=== PATIENT | male | born 1960 | race African-American/Black ===

== ENCOUNTER 2017-02-20 13:29 | Emergency (ER) | payer MEDICARE, MEDICAID ==
--- NOTE | 2017-02-20 13:36 | ER Document Report ---
ED Medical Screen (RME) - General Stated Complaint: THROAT PROBLEM Mode of Arrival: Ambulatory Information source: Patient Notes: PT REPORTS HE FEELS LIKE SOMETHING IS STUCK IN HIS THROAT FOR OVER A WEEK. HE REPORTS IT STARTED AFTER EATING POTATOES. He has been eating soft foods since that time. Nephew reports pt voice seems a little different. I have greeted and performed a rapid initial assessment of this patient. A comprehensive ED assessment and evaluation of the patient, analysis of test results and completion of the medical decision making process will be conducted by additional ED providers. TRAVEL OUTSIDE OF THE [place] IN LAST 30 DAYS: No - Related Data Allergies/Adverse Reactions: No Known Allergies Allergy (Verified 10/09/16 08:44) Past Medical History - Past Medical History Cardiac Medical History: Reports: Hx Hypercholesterolemia, Hx Hypertension Pulmonary Medical History: Reports: Hx Asthma Psychiatric Medical History: Reports: Hx Schizophrenia - Immunizations Hx Diphtheria, Pertussis, Tetanus Vaccination: Yes
[2017-02-20] MEDS ORDERED: LIDOCAINE 2% VISCOUS SOLN 20 ML UDCUP PO ONE (15:55)
--- NOTE | 2017-02-20 15:58 | ER Document Report ---
HPI - HPI Patient complains to provider of: foreign body in throat Onset: Last week Onset/Duration: Persistent Quality of pain: Achy Pain Level: 3 Context: Patient states that he was eating chicken last week and a bone got caught in his throat. Patient states that he feels like the bone is lodged in his esophagus. Since then patient has been drinking tea, water, has eaten rice as well as potatoes without difficulty. Associated Symptoms: Other - Throat discomfort. denies: Nonproductive cough, Productive cough Exacerbated by: Food Relieved by: Denies Similar symptoms previously: No Recently seen / treated by doctor: No - ROS ROS below otherwise negative: Yes Systems Reviewed and Negative: Yes All other systems reviewed and negative - CONSTITUTIONAL Constitutional: DENIES: Fever, Chills - EENT EENT: REPORTS: Sore Throat - RESPIRATORY Respiratory: DENIES: Trouble Breathing, Coughing - MUSCULOSKELETAL Musculoskeletal: DENIES: Extremity pain, Back Pain - DERM Skin Color: Normal Skin Problems: None Past Medical History - General Information source: Patient - Social History Smoking Status: Never Smoker Chew tobacco use (# tins/day): No Frequency of alcohol use: None Drug Abuse: None Lives with: Family Family History: Reviewed & Not Pertinent - Past Medical History Cardiac Medical History: Reports: Hx Hypercholesterolemia, Hx Hypertension Pulmonary Medical History: Reports: Hx Asthma Renal/ Medical History: Denies: Hx Peritoneal Dialysis Psychiatric Medical History: Reports: Hx Schizophrenia Surgical Hx: Negative - Immunizations Hx Diphtheria, Pertussis, Tetanus Vaccination: Yes Vertical Provider Document - CONSTITUTIONAL Agree With Documented VS: Yes Exam Limitations: No Limitations General Appearance: WD/WN, No Apparent Distress - INFECTION CONTROL TRAVEL OUTSIDE OF THE [place] IN LAST 30 DAYS: No - HEENT HEENT: Atraumatic, Normal ENT Exam, Normocephalic Notes: Patient managing oral secretions without difficulty. - NECK Neck: Normal Inspection, Supple. negative: Lymphadenopathy-Left, Lymphadenopathy-Right - RESPIRATORY Respiratory: Breath Sounds Normal, No Respiratory Distress, Chest Non-Tender. negative: Rales, Rhonchi, Wheezing O2 Sat by Pulse Oximetry: 99 - CARDIOVASCULAR Cardiovascular: Regular Rate, Regular Rhythm, No Murmur - MUSCULOSKELETAL/EXTREMETIES Musculoskeletal/Extremeties: MAEW - NEURO Level of Consciousness: Awake, Alert, Appropriate Motor/Sensory: No Motor Deficit - DERM Integumentary: Warm, Dry, No Rash Course - Re-evaluation Re-evalutation: 02/20/17 15:[address] rosales regarding patient presentation. Recommends outpatient follow-up primary doctor for further evaluation. May give dose of by mouth lidocaine to help with throat discomfort. - Vital Signs Vital signs: Temp Pulse Resp BP Pulse Ox 97.7 F 73 20 135/71 H 99 02/20/17 13:33 02/20/17 13:33 02/20/17 13:33 02/20/17 13:33 02/20/17 13:33 - Diagnostic Test Radiology reviewed: Reports reviewed Discharge - Discharge Clinical Impression: Throat discomfort Condition: Stable Disposition: HOME, SELF-CARE Additional Instructions: Return immediately for any new or worsening symptoms Followup with your primary care provider, call tomorrow to make a followup appointment Your x-ray did not show any signs concerning for a bone foreign body in her throat. Recheck with your primary doctor on Wednesday for further evaluation. Referrals: ERIK PUGH MD [ACTIVE STAFF] - 02/22/17
[2017-02-20 16:16] VITALS: BP 146/79
== END 2017-02-20 16:15 | disposition home or self-care (01) ==
LOC: ER 13:29
DX: T17.208A Unspecified foreign body in pharynx causing other injury, initial encounter (principal)
CPT/HCPCS: 99283; 70360; J3490

== ENCOUNTER → 2017-02-24 | Outpatient (CLI) | payer MEDICARE, MEDICAID | LOC: RAD 08:30 | PROVIDERS: ATTEND Physician Assistant | DX: R13.10 Dysphagia, unspecified (principal); K21.9 Gastro-esophageal reflux disease without esophagitis | CPT/HCPCS: 74210 ==

== ENCOUNTER 2018-02-10 15:34 | Observation (INO) | payer MEDICARE, MEDICAID ==
[2018-02-10] MEDS ORDERED: ASPIRIN 81 MG TABLET, CHEWABLE PO ONE (16:07)
--- NOTE | 2018-02-10 16:28 | RADIOLOGY REPORT (SQ) ---
EXAM DESCRIPTION: CHEST SINGLE VIEW COMPLETED DATE/TIME: 02/10/2018 4:19 pm REASON FOR STUDY: chest pain COMPARISON: None. EXAM PARAMETERS: NUMBER OF VIEWS: One view. TECHNIQUE: Single frontal radiographic view of the chest acquired. RADIATION DOSE: NA LIMITATIONS: None. FINDINGS: LUNGS AND PLEURA: No opacities, masses or pneumothorax. No pleural effusion. MEDIASTINUM AND HILAR STRUCTURES: No masses. Contour normal. HEART AND VASCULAR STRUCTURES: Heart normal in size. Normal vasculature. BONES: No acute findings. HARDWARE: None in the chest. OTHER: No other significant finding. IMPRESSION: NO ACUTE RADIOGRAPHIC FINDING IN THE CHEST. TECHNICAL DOCUMENTATION: JOB ID: [id number] [employer]- All Rights Reserved Reading location - IP/workstation name: [email or web address]
[2018-02-10 16:31] LABS: ABSOLUTE EOSINOPHILS # (AUTO) 0.1 10^3/uL (0.0-0.6); ABSOLUTE LYMPHOCYTES (AUTO) 1.5 10^3/uL (0.5-4.7); ABSOLUTE MONOCYTES (AUTO) 0.3 10^3/uL (0.1-1.4); ABSOLUTE NEUT (AUTO) 1.3 10^3/uL (1.7-8.2); BASOPHILS % (AUTO) 1.1 % (0-2); EOSINOPHILS % (AUTO) 4.2 % (0-6); HEMATOCRIT 42.3 % (37.9-51.0); HEMOGLOBIN 14.2 g/dL (13.5-17.0); LYMPHOCYTES % (AUTO) 47.2 % (13-45); MEAN CORPUSCULAR HGB CONC 33.5 g/dL (32.0-36.0); MEAN CORPUSCULAR VOLUME 87 fl (80-97); MONOCYTES % (AUTO) 7.9 % (3-13); PLATELET COUNT 177 10^3/uL (150-450); RED BLOOD COUNT 4.88 10^6/uL (4.35-5.55); RED CELL DISTRIBUTION WIDTH 12.7 % (11.5-14.0); SEGMENTED NEUTROPHILS % (AUTO) 39.6 % (42-78); TOTAL CELLS COUNTED % (AUTO) 100 %; WHITE BLOOD COUNT 3.2 10^3/uL (4.0-10.5)
[2018-02-10 16:52] LABS: ALANINE AMINOTRANSFERASE 22 U/L (21-72); ALBUMIN 3.9 g/dL (3.5-5.0); ALKALINE PHOSPHATASE 53 U/L (38-126); ANION GAP 9 (5-19); ASPARTATE AMINO TRANSFERASE 20 U/L (17-59); BILIRUBIN,DIRECT 0.3 mg/dL (0.0-0.4); BILIRUBIN,TOTAL 0.8 mg/dL (0.2-1.3); BLOOD UREA NITROGEN 13 mg/dL (7-20); CALCIUM 9.4 mg/dL (8.4-10.2); CARBON DIOXIDE 23 mmol/L (22-30); CHLORIDE 110 mmol/L (98-107); CREATINE KINASE 189 U/L (55-170); GLUCOSE 118 mg/dL (75-110); POTASSIUM 3.9 mmol/L (3.6-5.0); SODIUM 141.9 mmol/L (137-145); TOTAL PROTEIN 6.5 g/dL (6.3-8.2)
[2018-02-10 17:04] LABS: CREATINE KINASE MB 1.63 ng/mL (<4.55)
[2018-02-10 17:05] LABS: TROPONIN I 0.037 ng/mL
--- NOTE | 2018-02-10 17:38 | ER Document Report ---
ED Cardiac - General Chief Complaint: Chest Pain Stated Complaint: CHEST PAIN Time Seen by Provider: 02/10/18 16:07 Notes: PatientPatient is a 57-year-old male who was referred over by Dr. Mendez with a chief complaint of chest pain and elevated troponin done as an outpatient yesterday. Patient with history of schizophrenia therefore difficulty with history. Family at the bedside admits that he is complaining of back pain, cough, cold for about 1 week. Denies any fevers. States that he was not complaining of chest pain. Dr. Mendez states that he did admit to chest pain at their appointment yesterday. Trop of 0.15 on 02/09/18 Past medical history significant for schizophrenia, hyperlipidemia, IBS Past surgical history denies Social history denies any tobacco, alcohol or drug use. Lives with his nephew. Denies any history of hypertension, hyperlipidemia, diabetes, NE, CVA, TIA, DVT , PE. Denies any previous cath or stress test TRAVEL OUTSIDE OF THE [place] IN LAST 30 DAYS: No - Related Data Allergies/Adverse Reactions: No Known Allergies Allergy (Verified 02/20/17 13:35) Past Medical History - Social History Smoking Status: Never Smoker Family History: Reviewed & Not Pertinent Patient has suicidal ideation: No Patient has homicidal ideation: No - Past Medical History Cardiac Medical History: Reports: Hx Hypercholesterolemia, Hx Hypertension Pulmonary Medical History: Reports: Hx Asthma Renal/ Medical History: Denies: Hx Peritoneal Dialysis Psychiatric Medical History: Reports: Hx Schizophrenia - paranoid - Immunizations Hx Diphtheria, Pertussis, Tetanus Vaccination: Yes Review of Systems - Review of Systems -: Yes ROS unobtainable due to patient's medical condition - schizophrenia Physical Exam - Vital signs Vitals: Temp Pulse Resp BP Pulse Ox 97.7 F 88 18 135/73 H 97 02/10/18 15:53 02/10/18 15:53 02/10/18 15:53 02/10/18 15:53 02/10/18 15:53 - Notes Notes: PHYSICAL EXAM GENERAL: Alert, interacts well. HEAD: Normocephalic, atraumatic. EYES: Pupils equal, round, and reactive to light. Extraocular movements intact. ENT: Oral mucosa moist, tongue midline. NECK: Full range of motion. Supple. Trachea midline. LUNGS: Clear to auscultation bilaterally, no wheezes, rales, or rhonchi. No respiratory distress. HEART: Chest nontender regular rate and rhythm. No murmurs, gallops, or rubs. ABDOMEN: Soft, nondistended, nontender. No guarding, rebound, or rigidity.. Bowel sounds present in all 4 quadrants. EXTREMITIES: Moves all 4 extremities spontaneously. No edema, radial and dorsalis pedis pulses 2/4 bilaterally. No cyanosis. NEUROLOGICAL: Alert and oriented x4. Normal speech. PSYCH: Normal affect, normal mood. SKIN: Warm, dry, normal turgor. No rashes or lesions noted. Course - Re-evaluation Re-evalutation: 02/10/18 17:41 Patient is a 57-year-old male is hemodynamically stable, no acute distress and afebrile. Chest pain-free. EKG without any evidence of ST changes. Initial ER troponin is 0.037. Reviewed results with Dr. Mendez and Dr. Kan. Dr. Bennett requesting a CTA of the chest and admits that they can keep the patient in IMCU. We will do a stress test in the morning. At this time patient remains asymptomatic, family is agreeable with plan. Will admit to [facility]. - Vital Signs Vital signs: Temp Pulse Resp BP Pulse Ox 97.7 F 88 18 135/73 H 97 02/10/18 15:53 02/10/18 15:53 02/10/18 15:53 02/10/18 15:53 02/10/18 15:53 - Laboratory Result Diagrams: 02/10/18 16:20 02/10/18 16:20 Laboratory results interpreted by me: 02/10/18 02/10/18 16:20 16:20 WBC 3.2 L Seg Neutrophils % 39.6 L Lymphocytes % 47.2 H Absolute Neutrophils 1.3 L Chloride 110 H Glucose 118 H Creatine Kinase 189 H - Diagnostic Test Radiology reviewed: Image reviewed, Reports reviewed - EKG Interpretation by Me EKG shows normal: Sinus rhythm Rate: Normal Rhythm: NSR When compared to previous EKG there are: Previous EKG unavailable Discharge - Discharge Clinical Impression: Chest pain Qualifiers: Chest pain type: unspecified Qualified Code(s): R07.9 - Chest pain, unspecified Condition: Stable Disposition: ADMITTED INPATIENT Admitting Provider: Andrea Unit Admitted: [facility]
[2018-02-10] MEDS ORDERED: ACETAMINOPHEN 325 MG TABLET PO PRN (17:45)
[2018-02-10] MEDS ORDERED: ONDANSETRON HCL INJ/PF 4 MG/2 ML SDV IV PRN (17:45)
--- NOTE | 2018-02-10 18:06 | PDOC H&P ---
History of Present Illness Admission Date/PCP: 02/10/18 17:51 ERIK PUGH MD Patient complains of: chest pain History of Present Illness: ERIC LEMON is a 57 year old male This is the 57-year-old malecdominal paince yesterday because of the company abdominal painand general check upand patient was compliant and just discomfortin initial EKG in the office was all stableand order the cardiac enzymewhich come back 0.15atd patient was directed to the emergency departmentanied any shortness of breathnied any chest pain denied any shortness of breathand patience second cardiac enzyme was 0.037and EKG is all normalan in the hospital for further evaluationed to admin in the hospital for further evaluationpnd a side piece orderistory of the schizophrenia and a side piece ordersand difficult to evaluate the patientbut patient currently denies any other complaintswith ongoing computer for abdominal pain for so many yearsin person of excellence evaluations done including the G.I. work up was all stable and most likely IBS symptoms. Patients otherwise it was some cornerstones LDL was 124 and other than nor the risk factor including the family history of the heart to the mother Past Medical History Cardiac Medical History: Reports: Hyperlipidema, Hypertension Pulmonary Medical History: Reports: Asthma GI Medical History: Reports: Gastroesophageal Reflux Disease, Other Social History Smoking Status: Never Smoker Family History Family History: Reviewed & Not Pertinent Parental Family History Reviewed: Yes Children Family History Reviewed: Yes Sibling(s) Family History Reviewed.: Yes Medication/Allergy Home Medications: Ibuprofen [Motrin 600 Mg Tablet] 600 mg PO TIDP PRN #10 tablet 10/09/16 Penicillin V Potassium [Penicillin Vk 500 mg Tablet] 500 mg PO BID #14 tablet Allergies/Adverse Reactions: No Known Allergies Allergy (Verified 02/20/17 13:35) Review of Systems Constitutional: ABSENT: chills, fever(s), headache(s), weight gain, weight loss Eyes: ABSENT: visual disturbances Ears: ABSENT: hearing changes Cardiovascular: ABSENT: chest pain, dyspnea on exertion, edema, orthropnea, palpitations Respiratory: ABSENT: cough, hemoptysis Gastrointestinal: ABSENT: abdominal pain, constipation, diarrhea, hematemesis, hematochezia, nausea, vomiting Genitourinary: ABSENT: dysuria, hematuria Musculoskeletal: ABSENT: joint swelling Integumentary: ABSENT: rash, wounds Neurological: ABSENT: abnormal gait, abnormal speech, confusion, dizziness, focal weakness, syncope Psychiatric: ABSENT: anxiety, depression, homidical ideation, suicidal ideation Endocrine: ABSENT: cold intolerance, heat intolerance, menstrual abnormalities, polydipsia, polyuria Hematologic/Lymphatic: ABSENT: easy bleeding, easy bruising, lymphadenopathy Physical Exam Vital Signs: Temp Pulse Resp BP Pulse Ox 97.7 F 88 18 135/73 H 97 02/10/18 15:53 02/10/18 15:53 02/10/18 15:53 02/10/18 15:53 02/10/18 15:53 General appearance: PRESENT: no acute distress, well-developed, well-nourished Head exam: PRESENT: atraumatic, normocephalic Eye exam: PRESENT: conjunctiva pink, EOMI, PERRLA. ABSENT: scleral icterus Ear exam: PRESENT: normal external ear exam Mouth exam: PRESENT: moist, tongue midline Neck exam: PRESENT: full ROM. ABSENT: carotid bruit, JVD, lymphadenopathy, thyromegaly Respiratory exam: PRESENT: clear to auscultation dilip Cardiovascular exam: PRESENT: RRR. ABSENT: diastolic murmur, rubs, systolic murmur Pulses: PRESENT: normal dorsalis pedis pul, +2 pedal pulses bilateral Vascular exam: PRESENT: normal capillary refill GI/Abdominal exam: PRESENT: normal bowel sounds, soft. ABSENT: distended, guarding, mass, organolmegaly, rebound, tenderness Rectal exam: PRESENT: deferred Extremities exam: PRESENT: pedal edema. ABSENT: full ROM, left AKA, right AKA, left BKA, right BKA, calf tenderness, joint swelling, tenderness, other Musculoskeletal exam: PRESENT: ambulatory Neurological exam: PRESENT: alert, awake, oriented to person, oriented to place , oriented to time, oriented to situation, CN II-XII grossly intact. ABSENT: motor sensory deficit Psychiatric exam: PRESENT: appropriate affect, normal mood. ABSENT: homicidal ideation, suicidal ideation Skin exam: PRESENT: dry, intact, warm. ABSENT: cyanosis, rash Results Impressions: Chest X-Ray 02/10/18 16:07 IMPRESSION: NO ACUTE RADIOGRAPHIC FINDING IN THE CHEST. Assessment & Plan - Diagnosis (1) Chest pain Qualifiers: Chest pain type: unspecified Qualified Code(s): R07.9 - Chest pain, unspecified Is this a current diagnosis for this admission?: Yes Plan: E Rule out acs (2) Elevated troponin I level Is this a current diagnosis for this admission?: Yes Plan: consult cardiology (3) Schizophrenia Is this a current diagnosis for this admission?: Yes (4) Gastroesophageal reflux Is this a current diagnosis for this admission?: Yes (5) IBS (irritable bowel syndrome) Qualifiers: Irritable bowel syndrome type: unspecified Qualified Code(s): K58.9 - Irritable bowel syndrome without diarrhea Is this a current diagnosis for this admission?: Yes - Time Time Spent: 30 to 50 Minutes Medications reviewed and adjusted accordingly: Yes Within: Other - Inpatient Certification Medical Necessity: Need Close Monitoring Due to Risk of Patient Decompensation Post Hospital Care: D/C Senior Sales Assistant Documentation - Plan Summary Plan Summary: admit and see md order and dscusswith family
[2018-02-10] MEDS ORDERED: ENOXAPARIN SODIUM INJ 40 MG/0.4 ML DISP.SYRIN SUBCUT ONE (19:00)
--- NOTE | 2018-02-10 19:02 | EKG REPORT ---
SEVERITY:- NORMAL ECG - SINUS RHYTHM : Confirmed by: Javi Lynch MD 10-Feb-2018 19:01:47
--- NOTE | 2018-02-10 19:21 | RADIOLOGY REPORT (SQ) ---
EXAM DESCRIPTION: CTA CHEST COMPLETED DATE/TIME: 02/10/2018 6:48 pm REASON FOR STUDY: chest pain and elevated troponin COMPARISON: None. TECHNIQUE: CT scan of the chest performed using helical scanning technique with dynamic intravenous contrast injection. Images reviewed with lung, soft tissue and bone windows. Reconstructed coronal and sagittal MPR images reviewed. Additional 3 dimensional post-processing performed to develop Maximal Intensity Projection images (VT P). All images stored on PACS. All CT scanners at this facility use dose modulation, iterative reconstruction, and/or weight based d osing when appropriate to reduce radiation dose to as low as reasonably achievable (ALARA). [facility]: Dose Right [facility]: CareDose [facility]: Dose Right [facility]: Teradose 4D [facility]: alike CONTRAST TYPE AND DOSE: contrast/concentration: Isovue 370.00 mg/ml; Total Contrast Delivered: 80.0 ml; Total Saline Delivered: 100.0 ml Contrast bolus optimized for the pulmonary arteries. Not diagnostic for the aorta. RENAL FUNCTION: Creatinine measures 1.04 RADIATION DOSE: CT Rad equipment meets quality standard of care and radiation dose reduction techniq ues were employed. CTDIvol: 19.8 - 23.9 mGy. DLP: 921 mGy-cm. . LIMITATIONS: None. FINDINGS: LUNGS AND PLEURA: No masses, infiltrates, pneumothorax. No pleural effusions, calcificati ons. AORTA AND GREAT VESSELS: No aneurysm. Contrast bolus not optimized for the aorta. HEART: No pericardial effusion. Scattered atherosclerotic calcifications. PULMONARY ARTERIES: No emboli visualized in the main pulmonary arteries or the segmental branches. HILAR AND MEDIASTINAL STRUCTURES: No identified masses or abnormal nodes. HARDWARE: None in the chest. UPPER ABDOMEN: No significant findings. Limited exam. THYROID AND OTHER SOFT TISSUES: No masses. No adenopathy. BONES: No acute or significant finding. 3D MIPS: Confirm above findings. OTHER: No other significant finding. IMPRESSION: NO ACUTE INTRATHORACIC PROCESS. NO PULMONARY EMBOLI. CORONARY ARTERY CALCIFICATIONS. COMMENT: Quality ID # 436: Final reports with documentation of one or more dose reduction techniques (e.g., Automated exposure control, adjustment of the mA and/or kV according to patient size, use of iterative reconstruction technique) TECHNICAL DOCUMENTATION: JOB ID: [id number] [employer]- All Rights Reserved Reading location - IP/workstation name: [email or web address]
[2018-02-10] MEDS ORDERED: RISPERIDONE MICROSPHERES INJ 50 MG/2 ML KIT IM SCH (21:45)
[2018-02-10] MEDS ORDERED: ATORVASTATIN CALCIUM 40 MG TABLET PO SCH (22:00)
[2018-02-10] MEDS ORDERED: TRAZODONE HCL 50 MG TABLET PO SCH (22:00)
[2018-02-10] MEDS ORDERED: INFLUENZA ADLT QUAD (36MOS+) 2017-18 VAC 0.5 ML SYR IM PRN (22:39)
[2018-02-10 22:51] LABS: CREATINE KINASE MB 1.01 ng/mL (<4.55); TROPONIN I 0.039 ng/mL
[2018-02-11 05:31] LABS: CREATINE KINASE MB 0.95 ng/mL (<4.55); TROPONIN I 0.043 ng/mL
[2018-02-11] MEDS ORDERED: LANSOPRAZOLE 15 MG TAB.RAP.DR PO SCH (06:00)
[2018-02-11] MEDS ORDERED: TOPIRAMATE 100 MG TABLET PO SCH (10:00)
[2018-02-11] MEDS ORDERED: ENOXAPARIN SODIUM INJ 40 MG/0.4 ML DISP.SYRIN SUBCUT SCH (10:00)
[2018-02-11] MEDS ORDERED: ASPIRIN 81 MG TABLET, CHEWABLE PO SCH (10:00)
[2018-02-11] MEDS ORDERED: DOCUSATE SODIUM 100 MG CAPSULE PO SCH (10:00)
[2018-02-11 11:49] LABS: CREATINE KINASE MB 0.69 ng/mL (<4.55); TROPONIN I 0.029 ng/mL
--- NOTE | 2018-02-11 13:42 | RADIOLOGY REPORT (SQ) ---
EXAM DESCRIPTION: CT ABD/PELVIS NO ORAL OR IV COMPLETED DATE/TIME: 02/11/2018 1:26 pm REASON FOR STUDY: abd PAIN R10.84 GENERALIZED ABDOMINAL PAIN COMPARISON: 10/03/2014. TECHNIQUE: CT scan of the abdomen and pelvis performed without intravenous or oral contrast. Images reviewed with lung, soft tissue, and bone windows. Reconstructed coronal and sagittal MPR images revi ewed. All images stored on PACS. All CT scanners at this facility use dose modulation, iterative reconstruction, and/or weight based d osing when appropriate to reduce radiation dose to as low as reasonably achievable (ALARA). [facility]: Dose Right [facility]: CareDose [facility]: Dose Right [facility]: Teradose 4D [facility]: Smart [employer] RADIATION DOSE: CT Rad equipment meets quality standard of care and radiation dose reduction techniq ues were employed. CTDIvol: 9.6 mGy. DLP: 564 mGy-cm.mGy. LIMITATIONS: None. FINDINGS: LOWER CHEST: No significant findings. No nodules or infiltrates. NON-CONTRASTED LIVER, SPLEEN, ADRENALS: Evaluation limited by lack of IV contrast. No identified sign ificant masses. PANCREAS: No masses. No peripancreatic inflammatory changes. GALLBLADDER: No identified stones by CT criteria. No inflammatory changes to suggest cholecystitis. RIGHT KIDNEY AND URETER: No suspicious masses. Assessment limited by lack of IV contrast. No signif icant calcifications. No hydronephrosis or hydroureter. LEFT KIDNEY AND URETER: No suspicious masses. Assessment limited by lack of IV contrast. No signifi cant calcifications. No hydronephrosis or hydroureter. AORTA AND RETROPERITONEUM: No aneurysm. No retroperitoneal masses or adenopathy. BOWEL AND PERITONEAL CAVITY: Scattered colonic diverticuli. No obvious masses or inflammatory change s. No free fluid. APPENDIX: Normal. PELVIS, BLADDER, AND ABDOMINAL WALL:No abnormal masses. No free fluid. Bladder normal. BONES: No significant findings. OTHER: No other significant finding. IMPRESSION: COLONIC DIVERTICULOSIS. NO CT FINDINGS OF ACUTE DIVERTICULITIS. NO OTHER SIGNIFICANT O R ACUTE PROCESS IN THE ABDOMEN OR PELVIS. COMMENT: Quality ID # [id number]: Final reports with documentation of one or more dose reduction techniques (e.g., Automated exposure control, adjustment of the mA and/or kV according to patient size, use of iterative reconstruction technique) TECHNICAL DOCUMENTATION: JOB ID: [id number] [employer]- All Rights Reserved Reading location - IP/workstation name: [email or web address]
--- NOTE | 2018-02-11 14:12 | DRAGON STRESS TEST REPORT ---
INTRAVENOUS LEXISCAN CARDIOLITE STRESS TEST USING SINGLE PHOTON EMMISION COMPUTERIZED TOMOGRAPHIC. DATE OF PROCEDURE: February 11, 2018, INDICATION : Chest pain, abdominal pain, positive troponin I CARDIAC RISK FACTORS: Dyslipidemia RESTING EKG: Sinus rhythm, no baseline ST-T wave changes noted STRESS EKG: No significant changes noted with LexiScan bolus REASON FOR TERMINATION: Protocol. PROCEDURE REPORT: Baseline heart rate 60 beats per minute with blood pressure of 133/78. Patient had no significant complaints. Heart rate at 2 minutes post bolus 102 with a blood pressure of 111/68. 3 minutes post bolus heart rate 91 with blood pressure of 107/58. No significant EKG changes were noted. Patient had no significant complaints during the procedure or postprocedure. Patient injected with Aminophyllin 75 mg at 3 minutes or later after Lexiscan bolus. CONCLUSIONS: Normal EKG and hemodynamic response to IV LexiScan. NUCLEAR DATA: At rest the patient was given 14.33 millicuries of technetium 99 sestamibi injected intravenously. As per protocol rest gated SPECT images were obtained. On day of stress test, the patient was given intravenous LexiScan at a dose of 0.4 mg in 5 mL intravenously, followed by flush with normal saline. Subsequently the stress dose of 42.6 millicuries of technetium 99 sestamibi was injected intravenously. As per protocol stress gated images were obtained. NUCLEAR INTERPRETATION: Both raw and processed data were used for interpretation. Visual, qualitative, computer-generated quantitative data was used. There was good myocardial uptake of technetium compound. Motion artifact and soft tissue attenuations were noted. Increased visceral uptake was noted. No definitive areas of transient perfusion defect noted, No definitive areas of fixed perfusion defect or scars noted. EKG gated imaging showed LV EF at 47 %, rest and stress gated EF similar visually. T. I D. ratio was 1.18. Lung heart ratio noted to be within normal limits 0.37. No significant extracardiac and abnormal radiotracer activities were noted. RV free wall uptake was noted to be WNL. IMPRESSION: Also refer to comments under nuclear interpretation. Also test results needs to be interpreted in the context of pretest probability. 1. No definitive areas of transient perfusion defect noted. 2. There is no definitive scintigraphic evidence of myocardial infarction/scar. 3. EKG gated imaging shows left ventricular ejection fraction of approx. 47 %. 4. Clinical correlation requested as occasionally single vessel disease or balanced ischemia could be missed. In approximately 10% of the cases Lexiscan may not cause adequate vasodilatory stress. RECOMMENDATIONS: Aggressive risk factor modification and medical management. Further evaluation may be needed if continued symptoms or other high risk indicators are noted on clinical evaluation. Close cardiology follow-up is also recommended. Clinical correlation with echocardiogram derived ejection fraction. Inability to exercise by itself can lead to increased cardiovascular event risks. Consider cardiology consultation and or follow-up if clinically indicated. I am available for cardiology evaluation and consultation if requested by the club attendant, unless patient already has a transportation modeler. TONI
[2018-02-11] MEDS ORDERED: REGADENOSON INJ 0.4 MG/5 ML DISP.SYRIN IV ONE (15:53)
[2018-02-11] MEDS ORDERED: AMINOPHYLLINE INJ/PF 250 MG/10 ML SDV IV ONE (15:53)
[2018-02-11 18:14] VITALS: BP 135/73
--- NOTE | 2018-02-11 18:25 | XCELERA REPORT ---
[address] [address] Transthoracic Echocardiogram Report Name: ERIC LEMON Age: 57 yrs Gender: Male : 1960 Patient Status: Inpatient Patient Location: [address] [place] [address] Study Date: 02/11/2018 02:24 PM Height: 69 in Weight: 217 lb BSA: 2.1 m2 Procedure: A complete two-dimensional transthoracic echocardiogram was performed (2D, M-mode, spectral and color flow Doppler). The study was technically adequate with some images being suboptimal in quality. Reason For Study: Abnormal troponin I Ordering Physician: OCTAVIA PATTON Performed By: Antonia Corrales Interpretation Summary The left ventricular ejection fraction is normal. There is borderline concentric left ventricular hypertrophy. Doppler measurements suggest pseudonormalized left ventricular relaxation, which is associated with grade II/IV or mild to moderate diastolic dysfunction The left ventricle is grossly normal size. No regional wall motion abnormalities noted. Borderline right ventricular enlargement. The right ventricular systolic function is normal. The right atrium is normal in size Borderline left atrial enlargement. There is a trace amount of mitral regurgitation There is no mitral valve stenosis. No aortic regurgitation is present. There is no aortic valve stenosis There is a trace to mild amount of tricuspid regurgitation There is mild pulmonary hypertension by echo Right ventricular systolic pressure is estimated to be elevated at 30- 40mmHg. The aortic root is not well visualized but is probably normal size. The inferior vena cava appeared normal and decreased > 50% with respiration (RAP 5-10 mmHg) Minimal pericardial effusion. MMode/2D Measurements & Calculations RVDd: 4.2 cm LVIDd: 4.8 cm FS: 34.7 % Ao root diam: 2.8 cm IVSd: 1.0 cm LVIDs: 3.1 cm EDV(Teich): 106.7 ml LVPWd: 0.97 cm ESV(Teich): 38.6 ml Ao root area: 6.1 cm2 EF(Teich): 63.8 % LA dimension: 3.6 cm Doppler Measurements & Calculations MV E max nevaeh: MV P1/2t max nevaeh: Ao V2 max: LV V1 max P.8 cm/sec 49.7 cm/sec 139.8 cm/sec 4.5 mmHg MV A max nevaeh: MV P1/2t: 85.9 msec Ao max PG: LV V1 max: 60.2 cm/sec 7.8 mmHg 106.1 cm/sec MV E/A: 0.81 MVA(P1/2t): 2.6 cm2 MV dec slope: 169.6 cm/sec2 MV dec time: 0.29 sec PA V2 max: TR max nevaeh: 101.7 cm/sec 252.5 cm/sec PA max PG: TR max P.5 mmHg 4.1 mmHg Left Ventricle The left ventricle is grossly normal size. There is borderline concentric left ventricular hypertrophy. The left ventricular ejection fraction is normal. Doppler measurements suggest pseudonormalized left ventricular relaxation, which is associated with grade II/IV or mild to moderate diastolic dysfunction. No regional wall motion abnormalities noted. Right Ventricle Borderline right ventricular enlargement. There is normal right ventricular wall thickness. The right ventricular systolic function is normal. Atria The right atrium is normal in size. Borderline left atrial enlargement. Interarterial septum not well visualized and not well dopplered. Cannot comment on ASD/PFO presence. Mitral Valve The mitral valve is grossly normal. There is no mitral valve stenosis. There is a trace amount of mitral regurgitation. Aortic Valve The aortic valve is grossly normal. There is no aortic valve stenosis. No aortic regurgitation is present. Tricuspid Valve The tricuspid valve is not well visualized, but is grossly normal. There is no tricuspid stenosis. There is a trace to mild amount of tricuspid regurgitation. There is mild pulmonary hypertension by echo. Right ventricular systolic pressure is estimated to be elevated at 30-40mmHg. Pulmonic Valve The pulmonic valve is not well visualized. Great Vessels The aortic root is not well visualized but is probably normal size. The inferior vena cava appeared normal and decreased > 50% with respiration (RAP 5-10 mmHg). Effusions Minimal pericardial effusion. : OCTAVIA PATTON > Octavia Patton
--- NOTE | 2018-02-11 19:50 | PDOC CONSULTATION ---
Consultation Consult Date: 02/11/18 Attending physician:: ERIK PUGH Consult reason:: Chest pain and abnormal troponin I History of Present Illness Admission Date/PCP: 02/10/18 17:51 ERIK PUGH MD Patient complains of: Abdominal pain History of Present Illness: Patient was seen yesterday by me. Some orders were written. Patient's sister who was in the room at the time patient was seen in the ER. ERIC LEMON is a 57 year old male This is the 57-year-old malecdominal paince yesterday because of the company abdominal painand general check upand patient was compliant and just discomfortin initial EKG in the office was all stableand order the cardiac enzymewhich come back 0.15atd patient was directed to the emergency departmentanied any shortness of breathnied any chest pain denied any shortness of breathand patience second cardiac enzyme was 0.037and EKG is all normalan in the hospital for further evaluationed to admin in the hospital for further evaluationpnd a side piece orderistory of the schizophrenia and a side piece ordersand difficult to evaluate the patientbut patient currently denies any other complaintswith ongoing computer for abdominal pain for so many yearsin person of excellence evaluations done including the G.I. work up was all stable and most likely IBS symptoms. Patients otherwise it was some cornerstones LDL was 124 and other than nor the risk factor including the family history of the heart to the mother. This history was reviewed and confirmed. On repeated questioning patient denied any chest pain but did admit to having some abdominal pain. Patient gets biweekly Risperdal shots and he got this last week. Patient did however complain of some chest discomfort to Dr. Pugh when seen in the office yesterday. Patient was admitted because of troponin I level which was drawn yesterday came back elevated. Patient was subsequently sent to ER when a repeat troponin I was performed which was noted to be abnormal but only minimally elevated. Patient was admitted to the hospital and I was asked to see this patient. Patient was actually seen yesterday and orders were written yesterday. Past Medical History Cardiac Medical History: Reports: Hyperlipidema, Hypertension Pulmonary Medical History: Reports: Asthma GI Medical History: Reports: Gastroesophageal Reflux Disease, Other Psychiatric Medical History: Reports: Depression Social History Information Source: Patient Smoking Status: Never Smoker Frequency of Alcohol Use: None Hx Recreational Drug Use: No Drugs: None Hx Prescription Drug Abuse: No - Advance Directive Resuscitation Status: Full Code Surrogate healthcare decision maker:: Patient sister is the surrogate decision-maker. Family History Family History: Hypertension Parental Family History Reviewed: Yes Children Family History Reviewed: Yes Sibling(s) Family History Reviewed.: Yes Medication/Allergy Home Medications: Omeprazole 40 mg PO DAILY 02/10/18 Risperidone Microspheres [Risperdal Consta Inj 50 mg/2 ml Disp.syrin] 50 mg IM [id number] 02/10/18 Topiramate [Topamax 100 mg Tablet] 100 mg PO DAILY 02/10/18 Trazodone HCl [Desyrel 50 mg Tablet] 50 mg PO QHS 02/10/18 Allergies/Adverse Reactions: No Known Allergies Allergy (Verified 02/20/17 13:35) Review of Systems Review of Systems: Please see history of present illness and past medical history as wall. Constitutional: No fever or chills reported. Head : No recent chronic headaches, recent head injury. Eyes: No recent eye pain, diplopia, redness, discharge, acute visual changes. Ears: No recent chronic ear pain, acute hearing loss, ear discharge. Oral cavity: No recent ulcerations, bleeding, oral cavity discomfort. Neck: No recent acute neck pain reported. Hematologic: No recent easy bruising or bleeding or hematologic malignancy reported. Lymphatic: No recent lymphatic malignancy, chronic lymphadenopathy reported yet Cardiovascular system review: See history of present illness. Respiratory system review: No recent chronic cough, hemoptysis, blood clots in the lungs reported. Mild Shortness of breath on exertion Gastrointestinal system review: Abdominal pain as noted. Denies hematemesis, melena, recent change in bowel habits. Genitourinary system review: No recent acute or chronic hematuria, flank pain, UTI etc. reported. Skin system review: Negative for any recent abnormal bruising, no rash, no pruritus reported. Neurologic: No prior history of strokes, mini strokes, seizure disorder. Psychologic: Patient has history of schizophrenia and possible bipolar disorder. Musculoskeletal: Minor aches and pains reported. No acute joint swelling reported. Endocrine: No recent polyuria, polydipsia, recent heat or cold intolerance. Physical Exam Vital Signs: Temp Pulse Resp BP Pulse Ox 98.2 F 78 17 135/73 H 97 02/11/18 18:06 02/11/18 18:06 02/11/18 18:06 02/11/18 18:06 02/11/18 18:06 Intake & Output 02/10/18 02/11/18 02/12/18 06:59 06:59 06:59 Intake Total 12 10 Balance 12 10 Weight 98.8 kg Results Laboratory Results: 02/11/18 04:10 Magnesium 2.4 H 02/10/18 02/10/18 02/11/18 21:50 21:50 04:10 Creatine Kinase 170 CK-MB (CK-2) 1.01 0.95 Troponin I 0.039 0.043 02/11/18 02/11/18 02/11/18 04:10 10:37 10:37 Creatine Kinase 154 130 CK-MB (CK-2) 0.69 Troponin I 0.029 EKG Comments: Shows sinus rhythm. No acute ST-T wave changes are noted. Impressions: Chest X-Ray 02/10/18 16:07 IMPRESSION: NO ACUTE RADIOGRAPHIC FINDING IN THE CHEST. Chest/Abdomen CTA 02/10/18 17:25 IMPRESSION: NO ACUTE INTRATHORACIC PROCESS. NO PULMONARY EMBOLI. CORONARY ARTERY CALCIFICATIONS. Abdomen/Pelvis CT 02/11/18 00:00 IMPRESSION: COLONIC DIVERTICULOSIS. NO CT FINDINGS OF ACUTE DIVERTICULITIS. NO OTHER SIGNIFICANT OR ACUTE PROCESS IN THE ABDOMEN OR PELVIS. Assessment & Plan - Diagnosis (1) Chest pain Qualifiers: Chest pain type: unspecified Qualified Code(s): R07.9 - Chest pain, unspecified Is this a current diagnosis for this admission?: Yes (2) Elevated troponin I level Is this a current diagnosis for this admission?: Yes (3) Gastroesophageal reflux Is this a current diagnosis for this admission?: Yes (4) IBS (irritable bowel syndrome) Qualifiers: Irritable bowel syndrome type: unspecified Qualified Code(s): K58.9 - Irritable bowel syndrome without diarrhea Is this a current diagnosis for this admission?: Yes (5) Schizophrenia Qualifiers: Schizophrenia type: unspecified Qualified Code(s): F20.9 - Schizophrenia, unspecified Is this a current diagnosis for this admission?: Yes - Notes Notes: Chest pain: Patient has some typical and atypical features of chest pain. Cardiac enzymes so far has been negative. Electrocardiogram did not show any definitive ST segment changes. Multiple differential diagnoses exist in this patient. In descending order of probability this includes underlying coronary artery disease, gastroesophageal reflux, musculoskeletal pain, referred pain from elsewhere, anxiety panic disorder etc.Patient has significant cardiac risk factors, which indicates that there is a intermediate probability of chest discomfort coming from underlying CAD. Feel that it would need to be evaluated further. Discussed evaluation to assess this. In this regard risk benefits of nuclear stress test and other alternative processes were discussed in detail. The patient prefers to undergo nuclear stress test. The small risk of radiation , myocardial infarction, , cardiac arrhythmias, respiratory distress etc. were discussed. Patient understood the risks and gave informed consent. Nuclear stress test was therefore scheduled. For risk evaluation, patient is also being scheduled for a 2-D echocardiogram. Patient questions were answered. Elevated troponin I: This is of some concern. 2D echo has been ordered will be reviewed. I ordered a 2D echo. Patient to be scheduled for a nuclear stress test. Patient cannot walk on the treadmill therefore pharmacologic nuclear stress is being scheduled. Orders were written to place patient on aspirin, statin, continue DVT prophylaxis Lovenox dose. Dose can be upped to full dose should patient have recurrent chest pain or have subsequent further rise of troponin I. This was discussed with Dr. Pugh. Schizophrenia: Continue current regimen. Irritable bowel syndrome. This could be the cause of patient's abdominal pain. Gastroesophageal reflux: This is in the differential diagnosis of chest pain. Continue with proton pump inhibitor. - Time Time Spent: 30 to 50 Minutes - CODE STATUS was discussed, patient remains full code. Surrogate decision-maker patient's sister. Multiple medical problems were addressed. More than 50% of the time spent coordinating care, discussing management plans with involved caregivers. Management plans discussed with involved personnels. Medical decision making was of moderate to high complexity , patient's has multiple comorbidities. Medications reviewed and adjusted accordingly: Yes
--- NOTE | 2018-02-11 19:58 | PDOC PROGRESS REPORT ---
Subjective Progress Note for:: 02/11/18 Subjective:: Patient seems to be doing better. Pt is denying any chest arm or neck discomfort. Patient denying any PND, orthopnea. Patient denied any sustained palpitations, dizziness, syncope, near syncope. Patient denying any fever chills. Patient denying any other significant discomfort. Patient is maintaining sinus rhythm. Review of systems: Rest review of systems negative. Medications: Medications have been reviewed. Reason For Visit: CHEST PAIN/ELEVATED TROPONIN Physical Exam Vital Signs: Temp Pulse Resp BP Pulse Ox 98.2 F 78 17 135/73 H 97 02/11/18 18:06 02/11/18 18:06 02/11/18 18:06 02/11/18 18:06 02/11/18 18:06 Intake & Output 02/10/18 02/11/18 02/12/18 06:59 06:59 06:59 Intake Total 12 10 Balance 12 10 Weight 98.8 kg Exam: GENERAL: well-nourished and in no acute distress. Alert and oriented x3 HEAD: Atraumatic, normocephalic. EYES: Pupils equal round and reactive to light, extraocular movements intact, sclera anicteric, conjunctiva are normal. ENT: TMs normal, nares patent, oropharynx clear without exudates. Moist mucous membranes. No oral ulcerations or bleeding gums noted NECK: supple without lymphadenopathy. Trachea is central. No cervical or axillary lymphadenopathy noted. Carotids are 2+, JVD WNL LUNGS: Respiration seems nonlabored, no significant accessory muscle action noted. Breath sounds clear to auscultation bilaterally and equal noted. No wheezes rales or rhonchi noted. No significant dullness noted on percussion. CHEST: Palpation of the chest wall shows no significant chest wall tenderness. No other significant abnormalities noted. HEART: [place] BURNER TENDER, No PSH, 1/6 JAMES aortic area, 1/6 esparza systolic murmur mitral area, no rubs, no gallops. ABDOMEN: Soft, no significant tenderness appreciated, normoactive bowel sounds. No guarding, no rebound. No rigidity noted . No masses appreciated. EXTREMITIES: Pedal pulses are 1-2+, no calf tenderness noted. No clubbing or cyanosis.trace to 1+ pedal edema noted NEUROLOGICAL: Focused neurological exam showed no significant neurologic deficit. Normal speech, no focal weakness appreciated. PSYCH: Normal mood, normal affect. Judgment and insight within normal limits. SKIN: No significant ecchymosis, skin is noted to be warm. MUSCULOSKELETAL EXAM: No significant acute joint swelling noted. Results Laboratory Results: 02/11/18 04:10 Magnesium 2.4 H 02/10/18 02/10/18 02/11/18 21:50 21:50 04:10 Creatine Kinase 170 CK-MB (CK-2) 1.01 0.95 Troponin I 0.039 0.043 02/11/18 02/11/18 02/11/18 04:10 10:37 10:37 Creatine Kinase 154 130 CK-MB (CK-2) 0.69 Troponin I 0.029 EKG Comments: Telemetry strip shows sinus rhythm, no sustained tachycardia or bradycardia noted. Impressions: Chest X-Ray 02/10/18 16:07 IMPRESSION: NO ACUTE RADIOGRAPHIC FINDING IN THE CHEST. Chest/Abdomen CTA 02/10/18 17:25 IMPRESSION: NO ACUTE INTRATHORACIC PROCESS. NO PULMONARY EMBOLI. CORONARY ARTERY CALCIFICATIONS. Abdomen/Pelvis CT 02/11/18 00:00 IMPRESSION: COLONIC DIVERTICULOSIS. NO CT FINDINGS OF ACUTE DIVERTICULITIS. NO OTHER SIGNIFICANT OR ACUTE PROCESS IN THE ABDOMEN OR PELVIS. Assessment & Plan - Diagnosis (1) Chest pain Qualifiers: Chest pain type: unspecified Qualified Code(s): R07.9 - Chest pain, unspecified Is this a current diagnosis for this admission?: Yes (2) Elevated troponin I level Is this a current diagnosis for this admission?: Yes (3) Gastroesophageal reflux Is this a current diagnosis for this admission?: Yes (4) IBS (irritable bowel syndrome) Qualifiers: Irritable bowel syndrome type: unspecified Qualified Code(s): K58.9 - Irritable bowel syndrome without diarrhea Is this a current diagnosis for this admission?: Yes (5) Schizophrenia Qualifiers: Schizophrenia type: unspecified Qualified Code(s): F20.9 - Schizophrenia, unspecified Is this a current diagnosis for this admission?: Yes - Notes Notes: Chest pain: Patient claims chest pain is resolved. This was evaluated with a nuclear stress test. Nuclear stress test was negative for any significant areas of ischemia or any significant areas of scar. The nuclear stress test is felt to be relatively low risk. Patient informed that occasionally single- vessel disease and balanced ischemia could be missed. Patient advised aggressive risk factor modification and medical therapy. Patient informed that further evaluation may become necessary if symptoms worsens or there is a development of new symptoms indicative of angina or angina equivalent symptom. Elevated troponin I: Exact cause not clear. Literature review suggest that it could be related to Risperdal injection. However there are multiple other causes such as transient arrhythmias, coronary vasospasm, systemic inflammatory response syndrome etc. Gastroesophageal reflux: Patient advised small meals, weight loss, continue proton pump inhibitor. Irritable bowel syndrome: Currently stable continue current management plan Schizophrenia: Continue current management plans. Disposition discussed with Dr. Mendez. Will be happy to follow patient in the office. - Time Time with patient: Greater than 35 minutes - 2D echo results was also discussed. Questions answered from patient's sister and also patient. Patient was seen multiple times. Total time exceeds 40 minutes. In the morning nuclear stress test procedure, risks benefits, alternatives were discussed. Patient seen during the stress test. Patient also seen after stress test when results were discussed with the patient in detail. Patient's questions were answered. Nuclear stress test results were discussed with the patient. Patient was informed that no definitive evidence of pharmacologic stress-induced ischemia noted. No definite fixed defects were noted. Patient informed that occasionally significant single vessel disease or balanced ischemia could be missed. However based on the current study results, would recommend aggressive risk factor modification and medical therapy. It may also be worthwhile to consider evaluation or empiric management of other causes of chest pain. Should no other cause be found and if persistent in having chest pain, then cardiac catheterization should be considered. Right now, recommendations are for aggressive risk factor modification and medical management. CODE STATUS was discussed, patient remains full code. Surrogate decision-maker unchanged. Multiple medical problems were addressed. More than 50% of the time spent coordinating care, discussing management plans with involved caregivers. Management plans discussed with involved personnels. Medical decision making was of moderate to high complexity, patient's has multiple comorbidities. Medications reviewed and adjusted accordingly: Yes
== END 2018-02-11 18:36 | disposition home or self-care (01) ==
LOC: ER 15:34 → EH 17:51 → INTOOBSV 17:51 → 5 19:51
PROVIDERS: ADMIT Family Medicine; ATTEND Family Medicine
DX: R10.84 Generalized abdominal pain (principal); I10 Essential (primary) hypertension; E78.5 Hyperlipidemia, unspecified; R07.9 Chest pain, unspecified; J45.909 Unspecified asthma, uncomplicated; K21.9 Gastro-esophageal reflux disease without esophagitis; R77.8 Other specified abnormalities of plasma proteins; K58.9 Irritable bowel syndrome, unspecified; F20.9 Schizophrenia, unspecified; Z23 Encounter for immunization
CPT/HCPCS: 93005; 99285; 36415 ×2; 82553 ×2; 82550 ×2; 83735; 85025; 80053; 84484 ×2; 83880; 93306; 93017; 71045; 78452; 71275; 74176; 90686; 93010; A9500; J2785; A9270 ×5; J1650; J0280; Q9969; J3490

== ENCOUNTER 2018-10-22 22:06 | Emergency (ER) | payer MEDICARE, MEDICAID ==
[2018-10-22 23:03] LABS: ABSOLUTE EOSINOPHILS # (AUTO) 0.2 10^3/uL (0.0-0.6); ABSOLUTE LYMPHOCYTES (AUTO) 1.7 10^3/uL (0.5-4.7); ABSOLUTE MONOCYTES (AUTO) 0.5 10^3/uL (0.1-1.4); ABSOLUTE NEUT (AUTO) 1.7 10^3/uL (1.7-8.2); BASOPHILS % (AUTO) 0.3 % (0-2); EOSINOPHILS % (AUTO) 5.1 % (0-6); HEMATOCRIT 38.4 % (37.9-51.0); HEMOGLOBIN 13.2 g/dL (13.5-17.0); LYMPHOCYTES % (AUTO) 41.4 % (13-45); MEAN CORPUSCULAR HEMOGLOBIN 29.9 pg (27.0-33.4); MEAN CORPUSCULAR HGB CONC 34.3 g/dL (32.0-36.0); MEAN CORPUSCULAR VOLUME 87 fl (80-97); MONOCYTES % (AUTO) 11.2 % (3-13); PLATELET COUNT 187 10^3/uL (150-450); RED BLOOD COUNT 4.41 10^6/uL (4.35-5.55); RED CELL DISTRIBUTION WIDTH 13.4 % (11.5-14.0); TOTAL CELLS COUNTED % (AUTO) 100 %; WHITE BLOOD COUNT 4.1 10^3/uL (4.0-10.5)
[2018-10-22 23:14] LABS: BLOOD UREA NITROGEN 14 mg/dL (7-20); CALCIUM 8.7 mg/dL (8.4-10.2); CARBON DIOXIDE 28 mmol/L (22-30); CHLORIDE 105 mmol/L (98-107); GLUCOSE 90 mg/dL (75-110); POTASSIUM 3.6 mmol/L (3.6-5.0); SODIUM 142.8 mmol/L (137-145)
[2018-10-22 23:15] LABS: ACETAMINOPHEN < 10 ug/mL (10-30); ALANINE AMINOTRANSFERASE 44 U/L (21-72); ALBUMIN 3.3 g/dL (3.5-5.0); ALCOHOL < 10 mg/dL (NONE DETECTED); ALKALINE PHOSPHATASE 64 U/L (38-126); ANION GAP 10 (5-19); ASPARTATE AMINO TRANSFERASE 127 U/L (17-59); BILIRUBIN,DIRECT 0.1 mg/dL (0.0-0.4); BILIRUBIN,TOTAL 0.7 mg/dL (0.2-1.3); SALICYLATE < 1.0 mg/dL (2.0-20.0); TOTAL PROTEIN 5.9 g/dL (6.3-8.2)
--- NOTE | 2018-10-22 23:21 | ER Document Report ---
ED General - General Chief Complaint: Psych Problem Stated Complaint: IVC Time Seen by Provider: 10/22/18 23:20 TRAVEL OUTSIDE OF THE [place] IN LAST 30 DAYS: No - Related Data Allergies/Adverse Reactions: No Known Allergies Allergy (Verified 02/20/17 13:35) Past Medical History - Social History Smoking Status: Unknown if Ever Smoked Family History: Hypertension Patient has suicidal ideation: No Patient has homicidal ideation: No - Past Medical History Cardiac Medical History: Reports: Hx Hypercholesterolemia, Hx Hypertension Pulmonary Medical History: Reports: Hx Asthma Renal/ Medical History: Denies: Hx Peritoneal Dialysis GI Medical History: Reports: Hx Gastroesophageal Reflux Disease Psychiatric Medical History: Reports: Hx Depression, Hx Schizophrenia - paranoid - Immunizations Hx Diphtheria, Pertussis, Tetanus Vaccination: Yes Course - Laboratory Result Diagrams: 10/22/18 22:55 10/22/18 22:55 Laboratory results interpreted by me: 10/22/18 10/22/18 22:55 22:55 Hgb 13.2 L AST 127 H Total Protein 5.9 L Albumin 3.3 L Salicylates < 1.0 L Acetaminophen < 10 L - EKG Interpretation by Me Additional EKG results interpreted by me: 10/22/18 23:20 10/22/18 23:21 Discharge - Discharge Referrals: ERIK PUGH MD [Primary Care Provider] - Follow up as needed
[2018-10-23 00:08] LABS: APPEARANCE,URINE CLEAR; BILIRUBIN,URINE NEGATIVE (NEGATIVE); COLOR,URINE YELLOW; GLUCOSE, URINE NEGATIVE (NEGATIVE); KETONES,URINE TRACE mg/dL (NEGATIVE); LEUKOCYTE ESTERASE,URINE NEGATIVE (NEGATIVE); NITRITE,URINE NEGATIVE (NEGATIVE); PROTEIN,URINE NEGATIVE (NEGATIVE); URINE SPECIFIC GRAVITY 1.026
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
[2018-10-23 00:27] LABS: URINE AMPHETAMINES SCREEN NEGATIVE; URINE BARBITURATES SCREEN NEGATIVE; URINE BENZODIAZEPINES SCREEN NEGATIVE; URINE COCAINE SCREEN NEGATIVE; URINE MARIJUANA (THC) SCREEN NEGATIVE; URINE METHADONE SCREEN NEGATIVE; URINE PHENCYCLIDINE SCREEN NEGATIVE
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
--- NOTE | 2018-10-23 10:28 | ER Document Report ---
Doctor's Note Notes: 10/23/18 10:27 58-year-old male with a past medical history of schizophrenia previously followed by KELIN Crain who is supposedly not been taking his medications for an extended period of time. Family took her IVC paperwork on the patient given that he was missing for 4 days and found wandering without shoes. Patient was not oriented to place or time when he arrived. He is currently calm and cooperative no acute distress. Labs as recorded. Vital signs are stable. The psychology/psychiatry team will restart the patient on medications and we will observe the patient for at least 24 hours. 10/23/18 16:01 The patient has been evaluated by the psychiatry/psychology team. The patient has already been provided the risperidone extended release medication. The sister is following for legal guardianship at this time. Patient will be followed by integrated family services as well as a referral placed for the ACT team. Patient has been calm and cooperative in no acute distress. The psychiatry/psychology team does not feel that the patient meets IVC criteria at this time and would like to send the patient home. Patient denies any suicidal or homicidal ideations at this time and the patient is calm and cooperative. Given that the patient has already received the extended release injection, they do not want to provide any further medications at this moment by prescription.
[2018-10-23] MEDS ORDERED: RISPERIDONE MICROSPHERES INJ 50 MG/2 ML KIT IM ONE ×2 (13:45→14:02)
[2018-10-23] MEDS ORDERED: BENZTROPINE MESYLATE 1 MG TABLET PO ONE (13:45)
[2018-10-23] MEDS ORDERED: CHLORPROMAZINE HCL 50 MG TABLET PO PRN (13:46)
[2018-10-23] MEDS ORDERED: BENZTROPINE MESYLATE 1 MG TABLET PO SCH (14:00)
--- NOTE | 2018-10-23 14:00 | EKG REPORT ---
SEVERITY:- NORMAL ECG - SINUS RHYTHM : Confirmed by: Lolis Duong MD 23-Oct-2018 13:59:31
[2018-10-23] MEDS ORDERED: BENZTROPINE MESYLATE INJ 2 MG/2 ML AMPULE IM SCH (14:15)
[2018-10-23 17:42] VITALS: BP 140/78
== END 2018-10-23 17:41 | disposition home or self-care (01) ==
LOC: ER 22:06
DX: F20.0 Paranoid schizophrenia (principal); T43.596A Underdosing of other antipsychotics and neuroleptics, initial encounter; T43.216A Underdosing of selective serotonin and norepinephrine reuptake inhibitors, initial encounter; T42.6X6A Underdosing of other antiepileptic and sedative-hypnotic drugs, initial encounter; K21.9 Gastro-esophageal reflux disease without esophagitis; T47.1X6A Underdosing of other antacids and anti-gastric-secretion drugs, initial encounter; Z91.14 Patient's other noncompliance with medication regimen; S91.114A Laceration without foreign body of right lesser toe(s) without damage to nail, initial encounter; X58.XXXA Exposure to other specified factors, initial encounter; I10 Essential (primary) hypertension; J45.909 Unspecified asthma, uncomplicated
CPT/HCPCS: 93005; 99285; 96372; 36415; 80307 ×4; 85025; 80053; 81001; 93010; J0515; J2794

== ENCOUNTER 2019-01-20 08:58 | Emergency (ER) | payer MEDICARE, MEDICAID ==
--- NOTE | 2019-01-20 10:57 | ER Document Report ---
Addendum entered and electronically signed by DAHLIA COOLEY LCSWA 01/21/19 09:48: Discharge - Discharge Clinical Impression: Cellulitis Qualifiers: Site of cellulitis: extremity Site of cellulitis of extremity: lower extremity Laterality: unspecified laterality Qualified Code(s): L03.119 - Cellulitis of unspecified part of limb Schizophrenia Qualifiers: Schizophrenia type: unspecified Qualified Code(s): F20.9 - Schizophrenia, unspecified Condition: Stable Disposition: HOME, SELF-CARE Additional Instructions: You have been evaluated with medical behavior health teams have been deemed appropriate for discharge. You have been provided Risperdal Consta shot that would last 2 weeks. Please contact your outpatient mental health provider to schedule an appointment for continued medication maintenance. You have been provided a local resource list of area providers including mobile crisis contact information. AT ANY TIME, IF YOUR SYMPTOMS CHANGE SIGNIFICANTLY OR WORSEN OR YOU DEVELOP NEW SYMPTOMS, RETURN TO THE EMERGENCY DEPARTMENT IMMEDIATELY FOR RE-EVALUATION. Referrals: ERIK PUGH MD [Primary Care Provider] - Follow up as needed [facility] [Outside] - Follow up as needed Addendum entered and electronically signed by KALIE RODRIGUEZ FNP 01/20/19 21:07: Course - Re-evaluation Re-evalutation: 01/20/19 21:05 I been informed by the pharmacy and the primary nurse that we only have a total of 87.5 mg of Risperdal in the hospital right now. The patient will receive 50 mg IM x1 now and another dose will be given in 2 weeks. - Vital Signs Vital signs: Temp Pulse Resp BP Pulse Ox 97.9 F 64 16 132/54 H 97 01/20/19 20:00 01/20/19 20:00 01/20/19 20:00 01/20/19 20:00 01/20/19 20:00 - Laboratory Result Diagrams: 01/20/19 10:53 01/20/19 19:45 Laboratory results interpreted by me: 01/20/19 01/20/19 01/20/19 10:53 15:10 17:40 Potassium 5.5 H D Chloride 111 H BUN 25 H Creatinine 1.40 H Est GFR (Non-Af Amer) 52 L Glucose Calcium 7.7 L Total Bilirubin 1.7 H ALT 20 L Urine Ketones 20 H Urine Urobilinogen 2.0 H Salicylates < 1.0 L Acetaminophen < 10 L 01/20/19 19:45 Potassium Chloride 110 H BUN Creatinine Est GFR (Non-Af Amer) Glucose 115 H Calcium Total Bilirubin ALT Urine Ketones Urine Urobilinogen Salicylates Acetaminophen Original Note: ED General - General Chief Complaint: Altered Mental Status Stated Complaint: FOOT PAIN Time Seen by Provider: 01/20/19 10:22 Primary Care Provider: ERIK PUGH MD [Primary Care Provider] - Follow up as needed Notes: Patient is a 58-year-old male who [facility] the emergency department [facility] complaint of bilateral foot pain. According to the primary nurse he was walking all night on his bare feet and the patient. He had been walking from [facility] to a gas station, where the police picked him up and he was brought in to the emergency department he did have altered mental status. He does have a history of schizophrenia per his medical records. His feet are swollen and he does have a blister noted to his left foot. He denies any other pain but states that he does have bilateral feet pain. He is unable to describe his pain. TRAVEL OUTSIDE OF THE [place] IN LAST 30 DAYS: No - Related Data Allergies/Adverse Reactions: No Known Allergies Allergy (Verified 02/20/17 13:35) Past Medical History - Social History Smoking Status: Unknown if Ever Smoked Family History: Hypertension Patient has suicidal ideation: No Patient has homicidal ideation: No - Past Medical History Cardiac Medical History: Reports: Hx Hypercholesterolemia, Hx Hypertension Pulmonary Medical History: Reports: Hx Asthma Renal/ Medical History: Denies: Hx Peritoneal Dialysis GI Medical History: Reports: Hx Gastroesophageal Reflux Disease Psychiatric Medical History: Reports: Hx Depression, Hx Schizophrenia - paranoid - Immunizations Hx Diphtheria, Pertussis, Tetanus Vaccination: Yes Review of Systems - Review of Systems Notes: REVIEW OF SYSTEMS: CONSTITUTIONAL : Denies recent illness. Denies recent unintentional weight loss. Denies fever, chills, or sweats. EENT: Denies eye, ear, throat, or mouth pain, discharge, or symptoms. Denies nasal or sinus congestion. CARDIOVASCULAR: Denies chest pain. RESPIRATORY: Denies shortness of breath, cough, congestion, difficulty breathing, or wheezing. GASTROINTESTINAL: Denies nausea, vomiting, and diarrhea. Denies abdominal pain. Denies constipation. GENITOURINARY: Denies difficulty urinating, burning, blood in urine, urgency or frequency. MUSCULOSKELETAL: Denies neck and back pain. Denies joint pain or swelling. SKIN: See HPI HEMATOLOGIC : Denies easy bruising or bleeding. LYMPHATIC: Denies swollen, painful, enlarged glands. NEUROLOGICAL: Denies no numbness or tingling denies weakness. Denies headache. Denies altered mental status. Denies alteration in speech. PSYCHIATRIC: Denies stress, anxiety, alteration in sleep patterns, or depression. All other systems reviewed and negative. Physical Exam - Vital signs Vitals: Temp Pulse Resp BP Pulse Ox 97.6 F 70 20 122/77 98 01/20/19 09:08 01/20/19 09:08 01/20/19 09:08 01/20/19 09:08 01/20/19 09:08 - Notes Notes: PHYSICAL EXAMINATION: GENERAL: Appears well, healthy, well-nourished, no acute distress. HEAD: Normocephalic, atraumatic. EYES: PERRL, conjunctiva normal, all extraocular movements intact, sclera nonicteric ENT: Moist mucous membranes. NECK: Supple, no noticeable swelling, redness, rash. Normal range of motion. LUNGS: Equal breath sounds bilaterally and clear to auscultation. No wheezes rales or rhonchi. CARDIOVASCULAR: S1-S2, regular rate, regular rhythm. Radial pulses 2+, normal. ABDOMEN: Normoactive bowel sounds. Soft, nontender, no guarding, no rebound tenderness, and no masses palpated. EXTREMITIES: Normal strength and range of motion, no pitting or edema. No cyanosis. NEUROLOGICAL: Moves all extremities upon command. Strength 5/5 in all extremities. PSYCH: Normal mood, normal affect. SKIN: Warm, dry. Erythema noted to soles of feet. Course - Re-evaluation Re-evalutation: 01/20/19 10:57 Based off the patient's physical exam and history, he will be worked up for a mental health evaluation. 01/20/19 14:34 Patient does have an acute kidney injury, most likely due to dehydration and will be rehydrated. He received 2 L of IV fluids. Labs will be redrawn after IV fluids were done. Chest x-ray is normal. EKG is unremarkable. 01/20/19 19:00 Patient's repeat lab draw shows an improvement in his BUN and creatinine, but his potassium is 5.5, which does not make sense after receiving 2 L of normal saline. Another lab draw will be sent. 01/20/19 20:46 Patient's repeat chemistries are normal. He is medically cleared for mental health evaluation. He will also be given Keflex to treat his cellulitis to his bilateral feet. He will also be given the recommended dosages of his Cogentin 2 mg IM x1 and Risperdal Consta 100 mg IM x1. - Vital Signs Vital signs: Temp Pulse Resp BP Pulse Ox 97.9 F 64 16 132/54 H 97 01/20/19 20:00 01/20/19 20:00 01/20/19 20:00 01/20/19 20:00 01/20/19 20:00 - Laboratory Result Diagrams: 01/20/19 10:53 01/20/19 19:45 Laboratory results interpreted by me: 01/20/19 01/20/19 01/20/19 10:53 15:10 17:40 Potassium 5.5 H D Chloride 111 H BUN 25 H Creatinine 1.40 H Est GFR (Non-Af Amer) 52 L Glucose Calcium 7.7 L Total Bilirubin 1.7 H ALT 20 L Urine Ketones 20 H Urine Urobilinogen 2.0 H Salicylates < 1.0 L Acetaminophen < 10 L 01/20/19 19:45 Potassium Chloride 110 H BUN Creatinine Est GFR (Non-Af Amer) Glucose 115 H Calcium Total Bilirubin ALT Urine Ketones Urine Urobilinogen Salicylates Acetaminophen - EKG Interpretation by Me Additional EKG results interpreted by me: 01/20/19 Sinus rhythm. Heart rate 74. MT 168; QRS 96; QT 408; QTC 453. No ST elevations or depressions. Discharge - Discharge Clinical Impression: Cellulitis Qualifiers: Site of cellulitis: extremity Site of cellulitis of extremity: lower extremity Laterality: unspecified laterality Qualified Code(s): L03.119 - Cellulitis of unspecified part of limb Schizophrenia Qualifiers: Schizophrenia type: unspecified Qualified Code(s): F20.9 - Schizophrenia, unspecified Condition: Stable Disposition: PSYCH HOSP/UNIT Referrals: ERIK PUGH MD [Primary Care Provider] - Follow up as needed
[2019-01-20 11:08] LABS: ABSOLUTE EOSINOPHILS # (AUTO) 0.1 10^3/uL (0.0-0.6); ABSOLUTE LYMPHOCYTES (AUTO) 1.1 10^3/uL (0.5-4.7); ABSOLUTE MONOCYTES (AUTO) 0.6 10^3/uL (0.1-1.4); ABSOLUTE NEUT (AUTO) 4.1 10^3/uL (1.7-8.2); BASOPHILS % (AUTO) 0.7 % (0-2); EOSINOPHILS % (AUTO) 1.2 % (0-6); HEMATOCRIT 42.7 % (37.9-51.0); HEMOGLOBIN 14.4 g/dL (13.5-17.0); LYMPHOCYTES % (AUTO) 18.3 % (13-45); MEAN CORPUSCULAR HEMOGLOBIN 29.8 pg (27.0-33.4); MEAN CORPUSCULAR HGB CONC 33.7 g/dL (32.0-36.0); MEAN CORPUSCULAR VOLUME 89 fl (80-97); MONOCYTES % (AUTO) 10.6 % (3-13); PLATELET COUNT 180 10^3/uL (150-450); RED BLOOD COUNT 4.83 10^6/uL (4.35-5.55); RED CELL DISTRIBUTION WIDTH 12.9 % (11.5-14.0); SEGMENTED NEUTROPHILS % (AUTO) 69.2 % (42-78); TOTAL CELLS COUNTED % (AUTO) 100 %; WHITE BLOOD COUNT 5.9 10^3/uL (4.0-10.5)
[2019-01-20 11:30] LABS: ALANINE AMINOTRANSFERASE 20 U/L (21-72); ALBUMIN 4.3 g/dL (3.5-5.0); ALKALINE PHOSPHATASE 57 U/L (38-126); ANION GAP 9 (5-19); ASPARTATE AMINO TRANSFERASE 53 U/L (17-59); BILIRUBIN,DIRECT 0.3 mg/dL (0.0-0.4); BILIRUBIN,TOTAL 1.7 mg/dL (0.2-1.3); BLOOD UREA NITROGEN 25 mg/dL (7-20); CALCIUM 9.2 mg/dL (8.4-10.2); CARBON DIOXIDE 29 mmol/L (22-30); CHLORIDE 106 mmol/L (98-107); GLUCOSE 100 mg/dL (75-110); POTASSIUM 4.5 mmol/L (3.6-5.0); SODIUM 143.9 mmol/L (137-145); TOTAL PROTEIN 6.8 g/dL (6.3-8.2)
[2019-01-20 11:34] LABS: ACETAMINOPHEN < 10 ug/mL (10-30); ALCOHOL < 10 mg/dL (NONE DETECTED); SALICYLATE < 1.0 mg/dL (2.0-20.0)
--- NOTE | 2019-01-20 13:26 | EKG REPORT ---
SEVERITY:- NORMAL ECG - SINUS RHYTHM : Confirmed by: Javi Lynch MD 20-Jan-2019 13:25:56
--- NOTE | 2019-01-20 14:16 | RADIOLOGY REPORT (SQ) ---
EXAM DESCRIPTION: CT HEAD WITHOUT COMPLETED DATE/TIME: 01/20/2019 1:56 pm REASON FOR STUDY: AMS COMPARISON: None. TECHNIQUE: Axial images acquired through the brain without intravenous contrast. Images reviewed wi th bone, brain and subdural windows. Additional sagittal and coronal reconstructions were generated. Images stored on PACS. All CT scanners at this facility use dose modulation, iterative reconstruction, and/or weight based d osing when appropriate to reduce radiation dose to as low as reasonably achievable (ALARA). [facility]: Dose Right [facility]: CareDose [facility]: Dose Right [facility]: Teradose 4D [facility]: Therasis RADIATION DOSE: CT Rad equipment meets quality standard of care and radiation dose reduction techniq ues were employed. CTDIvol: 53.2 mGy. DLP: 1044 mGy-cm. mGy. LIMITATIONS: None. FINDINGS: VENTRICLES: Normal size and contour. CEREBRUM: No masses. No hemorrhage. No midline shift. No evidence for acute infarction. Normal gra y/white matter differentiation. No areas of low density in the white matter. CEREBELLUM: No masses. No hemorrhage. No alteration of density. No evidence for acute infarction. EXTRAAXIAL SPACES: No fluid collections. No masses. ORBITS AND GLOBE: No intra- or extraconal masses. Normal contour of globe without masses. CALVARIUM: No fracture. PARANASAL SINUSES: No fluid or mucosal thickening. SOFT TISSUES: No mass or hematoma. OTHER: No other significant finding. IMPRESSION: NO ACUTE INTRACRANIAL IMAGING FINDINGS. EVIDENCE OF ACUTE STROKE: NO. COMMENT: Quality ID # [id number]: Final reports with documentation of one or more dose reduction techniques (e.g., Automated exposure control, adjustment of the mA and/or kV according to patient size, use of iterative reconstruction technique) TECHNICAL DOCUMENTATION: JOB ID: [id number] [employer]- All Rights Reserved Reading location - IP/workstation name: [email or web address]
--- NOTE | 2019-01-20 14:23 | RADIOLOGY REPORT (SQ) ---
EXAM DESCRIPTION: CHEST SINGLE VIEW COMPLETED DATE/TIME: 01/20/2019 1:59 pm REASON FOR STUDY: AMS COMPARISON: CT ANGIO CHEST 02/10/2018 AP CHEST 02/10/2018 EXAM PARAMETERS: NUMBER OF VIEWS: One view. TECHNIQUE: Single frontal radiographic view of the chest acquired. RADIATION DOSE: NA LIMITATIONS: None. FINDINGS: LUNGS AND PLEURA: No opacities, masses or pneumothorax. No pleural effusion. MEDIASTINUM AND HILAR STRUCTURES: No masses. Contour normal. HEART AND VASCULAR STRUCTURES: Heart normal in size. Normal vasculature. BONES: No acute findings. HARDWARE: None in the chest. OTHER: No other significant finding. IMPRESSION: NO ACUTE RADIOGRAPHIC FINDING IN THE CHEST. TECHNICAL DOCUMENTATION: JOB ID: [id number] [employer]- All Rights Reserved Reading location - IP/workstation name: [email or web address]
[2019-01-20] MEDS ORDERED: NORMAL SALINE 1000 ML 1,000 ML IV ONE ×2 (14:32→14:35)
--- NOTE | 2019-01-20 15:16 | PSYCHOLOGICAL NOTE ---
Psych Note - Psych Note Date seen by psych provider: 01/20/19 Time seen by psych provider: 11:00 Psych Note: Reason for Consult: AMS Patient is a 58-year-old male who presents to the emergency department with a chief complaint of bilateral foot pain. Clinician asked that the patient had a chance to visit with his family; "I did not want to see anybody." Patient is observed looking at the corner as I am talking very quickly and quietly in that direction and then looking towards clinician and smiling. Patient is very calm and pleasant. He discloses he has no concerns at this time. When asked how the patient arrived to [facility] he reports he was "just walking." Patient confirms he would take medications. Clinician spoke with APS worker, lenore traylor, reports that he had been looking for this patient for 24 hours. He discloses that he spoke with the family and discussed obtaining legal guardianship process with them. Patient has not been taking his medications for a significant amount of time. During his evaluation the patient denied knowledge of any family members or place to live. Patient appears to have difficulty with orientation. He discloses that he has personally met multiple family members of this patient and that the patient does not live alone. There are multiple adults in the home which the patient discloses he has no knowledge of. Patient is alert and orientated to person and place. Mood is euthymic with congruent affect; clinician does note patient does smile during. No agitation is noted. Patient denies suicidal and homicidal ideations. Patient is demonstrating some behaviors indicating he is responding to internal stimuli i.e. when alone in his room and can be observed talking to to himself and when clinician was in the room he was whispering to his other side very quickly and quietly and then turning back to look at clinician. Medication recommendations per [facility]'s contracted psychiatrist Dr. Susan CALDWELL are as follows Continue home medications Schizophrenia per history Impression\\plan: Patient is recommended for IVC petition for overnight and mental health observation. Patient is demonstrating some behaviors indicating he is responding to internal stimuli. Patient reportedly has been off medications for many months and according to APS was missing for 24 hours. Medication augmentations have been provided. Dr. Hines was consulted and the care management this patient; attending physicians in agreement with recommendations and disposition.
[2019-01-20 15:47] LABS: APPEARANCE,URINE CLEAR; BILIRUBIN,URINE NEGATIVE (NEGATIVE); COLOR,URINE YELLOW; GLUCOSE, URINE NEGATIVE (NEGATIVE); KETONES,URINE 20 mg/dL (NEGATIVE); LEUKOCYTE ESTERASE,URINE NEGATIVE (NEGATIVE); NITRITE,URINE NEGATIVE (NEGATIVE); PROTEIN,URINE NEGATIVE (NEGATIVE); URINE SPECIFIC GRAVITY 1.025
[2019-01-20 16:19] LABS: URINE AMPHETAMINES SCREEN NEGATIVE; URINE BARBITURATES SCREEN NEGATIVE; URINE BENZODIAZEPINES SCREEN NEGATIVE; URINE COCAINE SCREEN NEGATIVE; URINE MARIJUANA (THC) SCREEN NEGATIVE; URINE METHADONE SCREEN NEGATIVE; URINE PHENCYCLIDINE SCREEN NEGATIVE
[2019-01-20 18:15] LABS: ANION GAP 6 (5-19); BLOOD UREA NITROGEN 18 mg/dL (7-20); CALCIUM 7.7 mg/dL (8.4-10.2); CARBON DIOXIDE 24 mmol/L (22-30); CHLORIDE 111 mmol/L (98-107); GLUCOSE 81 mg/dL (75-110); SODIUM 140.5 mmol/L (137-145)
[2019-01-20 18:27] LABS: POTASSIUM 5.5 mmol/L (3.6-5.0)
[2019-01-20 20:15] LABS: ANION GAP 6 (5-19); BLOOD UREA NITROGEN 17 mg/dL (7-20); CALCIUM 8.6 mg/dL (8.4-10.2); CARBON DIOXIDE 27 mmol/L (22-30); CHLORIDE 110 mmol/L (98-107); GLUCOSE 115 mg/dL (75-110); SODIUM 142.5 mmol/L (137-145)
[2019-01-20 20:31] LABS: POTASSIUM 3.7 mmol/L (3.6-5.0)
[2019-01-20] MEDS ORDERED: RISPERIDONE MICROSPHERES INJ 50 MG/2 ML KIT IM ONE ×2 (20:45→21:05)
[2019-01-20] MEDS ORDERED: BENZTROPINE MESYLATE INJ 2 MG/2 ML AMPULE IM ONE (20:45)
[2019-01-20] MEDS ORDERED: CEPHALEXIN 500 MG CAPSULE PO SCH (22:00)
[2019-01-21] MEDS: CEPHALEXIN 500 MG CAPSULE PO SCH ×2 (03:47→08:07)
[2019-01-21] MEDS ORDERED: ACETAMINOPHEN 325 MG TABLET PO ONE (08:13)
--- NOTE | 2019-01-21 09:46 | ER Document Report ---
Doctor's Note Notes: 01/21/19 18:49 As the rounding physician this AM, I assessed the patient's labs, vitals, and records. No concerning findings this morning. Patient denies any acute complaints. Patient is cleared for disposition by behavioral health team. Patient's family members have agreed to poultry picking machine tender the patient. PHYSICAL EXAMINATION: GENERAL: Well-appearing, well-nourished and in no acute distress. HEAD: Atraumatic, normocephalic. EYES: Pupils equal round extraocular movements intact, conjunctiva are normal. ENT: Nares patent NECK: Normal range of motion LUNGS: No respiratory distress Musculoskeletal: Normal range of motion NEUROLOGICAL: Normal speech, normal gait. PSYCH: Confused but at reported baseline SKIN: Warm, Dry, normal turgor, no rashes or lesions noted.
--- NOTE | 2019-01-21 09:57 | PSYCHOLOGICAL NOTE ---
Psych Note - Psych Note Date seen by psych provider: 01/21/19 Time seen by psych provider: 08:00 Psych Note: Reason for Consult: AMS Checking conducted with patient Patient's mood is euthymic with congruent affect is smiling with clinician. He denies thoughts of wanting to harm himself or others. He reports that his feet hurt and cannot walk because "they hurt." Clinician spoke with patient's [id number], Hao, who reports that the patient was just released from custodial after being arrested for urinating in public. He discloses that the patient walks constantly and the family has difficulty controlling him. He states the patient has been lately refusing to go to his mental health appointments where they would get to the stop sign he will just jump out of the car and walk away. He reports he can see a huge difference (improvement) in the patient today; "he is talking to me he never talks to me if he is off his meds." He confirms the patient lives with other family members and that he is going to go and buy the patient some new shoes prior to discharge. Medication recommendations per [facility]'s contracted psychiatrist Dr. Susan CALDWELL are as follows Continue home medications Schizophrenia per history Impression\\plan: Patient is recommended for rescind of IVC and is cleared from acute psychiatric services. Patient reportedly has been off medications for many months and according to APS was missing for 24 hours. Medication augmentations have been provided. Patient is no longer demonstrating any behaviors or responding to internal stimuli. Patient maintains good eye contact and is able to appropriately answer questions. He is no longer having conversations while by himself in the room or whispering to the side during conversations. Patient's presentation has greatly improved since receiving Risperdal Consta. Patient is recommended to follow-up with his outpatient mental health provider for continued medication management. APS is currently involved with patient to ensure additional needs are being met. Dr. Hines was consulted and the care management this patient; attending physicians in agreement with recommendations and disposition.
[2019-01-21 10:23] VITALS: BP 97/72
== END 2019-01-21 10:23 | disposition home or self-care (01) ==
LOC: ER 08:58
DX: F20.9 Schizophrenia, unspecified (principal); L03.119 Cellulitis of unspecified part of limb; M79.672 Pain in left foot; M79.671 Pain in right foot; E78.00 Pure hypercholesterolemia, unspecified; I10 Essential (primary) hypertension
CPT/HCPCS: 93005; 99285; 96372; 96360; 96361; 36415; 80307 ×4; 85025; 80048; 80053; 81001; 71045; 70450; 93010; A9270 ×2; J0515; J2794; J7030

== ENCOUNTER 2019-01-31 04:50 | Emergency (ER) | payer MEDICARE, MEDICAID ==
[2019-01-31 04:59] VITALS: BP 137/95
[2019-01-31] MEDS ORDERED: DIPH/PERTUSS(ACELL)/TETANUS VAC/PF 0.5 ML SYR (>=10YO) IM ONE (05:18)
[2019-01-31] MEDS ORDERED: BACITRACIN ZINC OINTMENT 15 GM TP ONE (05:58)
--- NOTE | 2019-01-31 06:51 | ER Document Report ---
HPI <CHAUNCEY PUGH - Last Filed: 01/31/19 09:42> - HPI Patient complains to provider of: foot pain Pain Level: 3 Context: Patient is a 58-year-old male presents to the emergency department complaining of generalized lower feet pain. Patient does appear to be mentally delayed and upon reviewing past charts this does appear to be his baseline. He has been here multiple times for mental health evaluations, schizophrenia, bilateral foot pain. When you ask patient what is wrong he says "my feet hurt." When you ask the patient where he lives he states he is homeless. In reviewing past charts it does not appear that the patient is homeless it does appear that the patient has family that attempts to take care of him although he does have schizophrenia and has been seen at this facility multiple times. Multiple attempts to contact family members are unsuccessful. Patient is denying any other complaints just stating that bilateral feet hurt. It is snowing outside and patient's clothes are wet. He walks into the emergency room with no shoes on, with psychiatric scrubs on. Past medical history obtained from previous charts show schizophrenia Medications: Unknown Allergies: None - MUSCULOSKELETAL Musculoskeletal: REPORTS: Extremity pain - bilateral feet <LARRY FERREIRA - Last Filed: 01/31/19 19:35> - HPI Time Seen by Provider: 01/31/19 05:17 Past Medical History - General Information source: Patient - Social History Smoking Status: Never Smoker Chew tobacco use (# tins/day): No Frequency of alcohol use: None Drug Abuse: None Family History: None Patient has suicidal ideation: No Patient has homicidal ideation: No - Past Medical History Cardiac Medical History: Reports: Hx Hypercholesterolemia, Hx Hypertension Pulmonary Medical History: Reports: Hx Asthma Renal/ Medical History: Denies: Hx Peritoneal Dialysis GI Medical History: Reports: Hx Gastroesophageal Reflux Disease Psychiatric Medical History: Reports: Hx Depression, Hx Schizophrenia - paranoid - Immunizations Hx Diphtheria, Pertussis, Tetanus Vaccination: Yes <LARRY FERREIRA - Last Filed: 01/31/19 19:35> Vertical Provider Document - CONSTITUTIONAL Agree With Documented VS: Yes Notes: GENERAL: Alert, interacts well. No acute distress. HEAD: Normocephalic, atraumatic. EYES: Pupils equal, round, and reactive to light. Extraocular movements intact. ENT: Oral mucosa moist, tongue midline. NECK: Full range of motion. Supple. Trachea midline. LUNGS: Clear to auscultation bilaterally, no wheezes, rales, or rhonchi. No respiratory distress. HEART: Regular rate and rhythm. No murmur ABDOMEN: Soft, non-tender. Non-distended. Bowel sounds present in all 4 quadrants. EXTREMITIES: Moves all 4 extremities spontaneously. No edema, normal radial and dorsalis pedis pulses bilaterally. No cyanosis. BACK: no cervical, thoracic, lumbar midline tenderness. No saddle anesthesia, normal distal neurovascular exam. NEUROLOGICAL: Alert nose his name, knows he is at the hospital. He is unsure of the date or current events. PSYCH: Normal affect, normal mood. SKIN: Cold, wet, normal turgor. Patient does have abrasions noted dorsal aspect bilateral great toes. Otherwise feet are atraumatic. - INFECTION CONTROL TRAVEL OUTSIDE OF THE [place] IN LAST 30 DAYS: No <LARRY FERREIRA - Last Filed: 01/31/19 19:35> Course - Vital Signs Vital signs: Temp Pulse Resp BP Pulse Ox 98.0 F 95 20 137/95 H 99 01/31/19 04:57 01/31/19 04:57 01/31/19 04:57 01/31/19 04:57 01/31/19 04:57 <CHAUNCEY PUGH - Last Filed: 01/31/19 09:42> - Re-evaluation Re-evalutation: 01/31/19 06:50 4 patient state he does get up out of bed multiple times asks to use the restroom. He is also trying to give nursing staff paperwork stating that that is his insurance card. When asks if he lives alone patient states yes. When asked if he has family patient states yes. Continued to try to contact family members done by nursing staff unsuccessful. 01/31/19 07:13 Pt. is now asking to leave the ED. Nursing staff continues to call the phone number listed in our computer to contact the family without success. Consult for social work has been placed in the computer to figure out if the patient is in fact, so does have family members. Patient care and report were transferred to Mariana RAMIREZ at shift change. - Vital Signs Vital signs: Temp Pulse Resp BP Pulse Ox 98.0 F 95 20 137/95 H 99 01/31/19 04:57 01/31/19 04:57 01/31/19 04:57 01/31/19 04:57 01/31/19 04:57 <LARRY FERREIRA - Last Filed: 01/31/19 19:35> Discharge <ALEJANDROCHAUNCEY FERGUSON - Last Filed: 01/31/19 09:42> <LARRY FERREIRA - Last Filed: 01/31/19 19:35> - Discharge Clinical Impression: Foot pain Qualifiers: Laterality: bilateral Qualified Code(s): M79.671 - Pain in right foot Condition: Good Disposition: HOME, SELF-CARE Additional Instructions: He was in the emergency department this morning for foot pain. It is important that you take care of your feet. You can put bacitracin on them if you have any cuts or abrasions. If your feet start to swell up and you are unable to walk, he start developing high fever and you get redness or pus coming out of your feet please immediately return to the emergency department. If you have any other concerns please merely return to the emergency department. Referrals: ERIK PUGH MD [Primary Care Provider] - Follow up as needed
== END 2019-01-31 09:53 | disposition home or self-care (01) ==
LOC: ER 04:50
DX: S90.412A Abrasion, left great toe, initial encounter (principal); S90.411A Abrasion, right great toe, initial encounter; M79.671 Pain in right foot; M79.672 Pain in left foot; X58.XXXA Exposure to other specified factors, initial encounter; F20.9 Schizophrenia, unspecified; I10 Essential (primary) hypertension; J45.909 Unspecified asthma, uncomplicated
CPT/HCPCS: 90471; 90715; 99283; J3490

== ENCOUNTER 2019-01-31 21:08 | Emergency (ER) | payer MEDICARE, MEDICAID ==
[2019-01-31 22:25] LABS: ABSOLUTE LYMPHOCYTES (AUTO) 0.6 10^3/uL (0.5-4.7); ABSOLUTE MONOCYTES (AUTO) 0.3 10^3/uL (0.1-1.4); ABSOLUTE NEUT (AUTO) 5.2 10^3/uL (1.7-8.2); BASOPHILS % (AUTO) 0.3 % (0-2); EOSINOPHILS % (AUTO) 0.6 % (0-6); HEMOGLOBIN 15.1 g/dL (13.5-17.0); LYMPHOCYTES % (AUTO) 9.9 % (13-45); MEAN CORPUSCULAR HEMOGLOBIN 29.8 pg (27.0-33.4); MEAN CORPUSCULAR HGB CONC 33.6 g/dL (32.0-36.0); MEAN CORPUSCULAR VOLUME 89 fl (80-97); MONOCYTES % (AUTO) 5.6 % (3-13); PLATELET COUNT 209 10^3/uL (150-450); RED BLOOD COUNT 5.07 10^6/uL (4.35-5.55); RED CELL DISTRIBUTION WIDTH 12.7 % (11.5-14.0); SEGMENTED NEUTROPHILS % (AUTO) 83.6 % (42-78); TOTAL CELLS COUNTED % (AUTO) 100 %; WHITE BLOOD COUNT 6.2 10^3/uL (4.0-10.5)
[2019-01-31 22:43] LABS: ANION GAP 9 (5-19); BLOOD UREA NITROGEN 9 mg/dL (7-20); CALCIUM 8.7 mg/dL (8.4-10.2); CARBON DIOXIDE 30 mmol/L (22-30); CHLORIDE 102 mmol/L (98-107); GLUCOSE 149 mg/dL (75-110); POTASSIUM 4.3 mmol/L (3.6-5.0)
[2019-01-31 22:44] LABS: ACETAMINOPHEN < 10 ug/mL (10-30); ALANINE AMINOTRANSFERASE 26 U/L (21-72); ALBUMIN 3.9 g/dL (3.5-5.0); ALCOHOL < 10 mg/dL (NONE DETECTED); ALKALINE PHOSPHATASE 75 U/L (38-126); ASPARTATE AMINO TRANSFERASE 23 U/L (17-59); BILIRUBIN,DIRECT 0.1 mg/dL (0.0-0.4); BILIRUBIN,TOTAL 0.4 mg/dL (0.2-1.3); SALICYLATE < 1.0 mg/dL (2.0-20.0); TOTAL PROTEIN 6.7 g/dL (6.3-8.2)
[2019-01-31 22:53] LABS: APPEARANCE,URINE CLEAR; BILIRUBIN,URINE NEGATIVE (NEGATIVE); COLOR,URINE YELLOW; GLUCOSE, URINE NEGATIVE (NEGATIVE); KETONES,URINE NEGATIVE (NEGATIVE); LEUKOCYTE ESTERASE,URINE NEGATIVE (NEGATIVE); NITRITE,URINE NEGATIVE (NEGATIVE); PROTEIN,URINE NEGATIVE (NEGATIVE); URINE SPECIFIC GRAVITY 1.018
[2019-01-31 23:06] LABS: URINE AMPHETAMINES SCREEN NEGATIVE; URINE BARBITURATES SCREEN NEGATIVE; URINE BENZODIAZEPINES SCREEN NEGATIVE; URINE COCAINE SCREEN NEGATIVE; URINE MARIJUANA (THC) SCREEN NEGATIVE; URINE METHADONE SCREEN NEGATIVE; URINE PHENCYCLIDINE SCREEN NEGATIVE
--- NOTE | 2019-02-01 01:33 | EKG REPORT ---
SEVERITY:- BORDERLINE ECG - SINUS RHYTHM VENTRICULAR PREMATURE COMPLEX : Confirmed by: Lolis Duong MD 01-Feb-2019 01:31:30
--- NOTE | 2019-02-01 05:31 | ER Document Report ---
ED Psych Disorder / Suicide - General TRAVEL OUTSIDE OF THE [place] IN LAST 30 DAYS: No <ALRRY FERREIRA - Last Filed: 02/01/19 05:27> <DAHLIA COOLEY - Last Filed: 02/01/19 11:51> - General Chief Complaint: Psych Problem Stated Complaint: PSYCH Time Seen by Provider: 01/31/19 21:45 Primary Care Provider: ERIK PUGH MD [Primary Care Provider] - Follow up as needed Notes: Patient is a 58-year-old male with schizophrenia presents to the emergency department for "nowhere to go." Patient is stating that he is not taking any medications for his schizophrenia. Patient was in this facility last evening complaining of bilateral foot pain. Was noted to present to the emergency room with no shoes on. Social work consult was placed by myself. In discussing this with nursing staff social work was unable to help the patient during day shift. States the patient is requesting to go home and was discharged. Patient represents to the emergency department tonight again with a chief complaint "nowhere to go." In reviewing past charts patient has noted to had multiple psych evaluations due to his schizophrenia and noncompliance with medications. Patient is denying any other complaints at this time. (LARRY FERREIRA) - Related Data Allergies/Adverse Reactions: No Known Allergies Allergy (Verified 01/31/19 04:57) Past Medical History - General Information source: Patient - Social History Smoking Status: Unknown if Ever Smoked Family History: None Patient has suicidal ideation: No Patient has homicidal ideation: No - Past Medical History Cardiac Medical History: Reports: Hx Hypercholesterolemia, Hx Hypertension Pulmonary Medical History: Reports: Hx Asthma Renal/ Medical History: Denies: Hx Peritoneal Dialysis GI Medical History: Reports: Hx Gastroesophageal Reflux Disease Psychiatric Medical History: Reports: Hx Depression, Hx Schizophrenia - paranoid - Immunizations Hx Diphtheria, Pertussis, Tetanus Vaccination: Yes <LARRY FERREIRA - Last Filed: 02/01/19 05:27> Review of Systems - Review of Systems Constitutional: No symptoms reported EENT: No symptoms reported Cardiovascular: No symptoms reported Respiratory: No symptoms reported Gastrointestinal: No symptoms reported Genitourinary: No symptoms reported Male Genitourinary: No symptoms reported Musculoskeletal: No symptoms reported Skin: No symptoms reported Hematologic/Lymphatic: No symptoms reported Neurological/Psychological: See HPI <LARRY FERREIRA - Last Filed: 02/01/19 05:27> Physical Exam <LARRY FERREIRA - Last Filed: 02/01/19 05:27> - Vital signs Vitals: Temp Pulse Resp BP Pulse Ox 97.9 F 91 20 154/103 H 99 01/31/19 21:18 01/31/19 21:18 01/31/19 21:18 01/31/19 21:18 01/31/19 21:18 - Notes Notes: GENERAL: Alert, interacts well. No acute distress. Patient is noted to already be in psych scrubs with hospital socks on HEAD: Normocephalic, atraumatic. EYES: Pupils equal, round, and reactive to light. Extraocular movements intact. ENT: Oral mucosa moist, tongue midline. NECK: Full range of motion. Supple. Trachea midline. LUNGS: Clear to auscultation bilaterally, no wheezes, rales, or rhonchi. No respiratory distress. HEART: Regular rate and rhythm. No murmur ABDOMEN: Soft, non-tender. Non-distended. Bowel sounds present in all 4 quadrants. EXTREMITIES: Moves all 4 extremities spontaneously. No edema, normal radial and dorsalis pedis pulses bilaterally. No cyanosis. BACK: no cervical, thoracic, lumbar midline tenderness. No saddle anesthesia, normal distal neurovascular exam. NEUROLOGICAL: Alert asking for blanket. PSYCH: Normal affect, normal mood. SKIN: Warm, dry, normal turgor. (LARRY FERREIRA) Course - Laboratory Result Diagrams: 01/31/19 21:51 01/31/19 21:51 <LARRY FERREIRA - Last Filed: 02/01/19 05:27> - Laboratory Result Diagrams: 01/31/19 21:51 01/31/19 21:51 <DAHLIA COOLEY - Last Filed: 02/01/19 11:51> - Re-evaluation Re-evalutation: Patient is medically cleared currently awaiting psych evaluation. If social wo rk is unable to help the patient hopefully psychiatric services will be able to either place the patient or restart him on his psychiatric medications. Patient is currently sleeping in no apparent distress. (LARRY FERREIRA) - Vital Signs Vital signs: Temp Pulse Resp BP Pulse Ox 97.9 F 74 20 149/74 H 98 02/01/19 06:30 02/01/19 06:30 02/01/19 06:30 02/01/19 06:30 02/01/19 06:30 - Laboratory Laboratory results interpreted by me: 01/31/19 01/31/19 01/31/19 21:51 21:51 21:51 Seg Neutrophils % 83.6 H Lymphocytes % 9.9 L Glucose 149 H Urine Urobilinogen 4.0 H Salicylates < 1.0 L Acetaminophen < 10 L Discharge <LARRY FERREIRA - Last Filed: 02/01/19 05:27> <DAHLIA COOLEY - Last Filed: 02/01/19 11:51> - Discharge Clinical Impression: Schizophrenia Qualifiers: Schizophrenia type: unspecified Qualified Code(s): F20.9 - Schizophrenia, unspecified Condition: Stable Disposition: HOME, SELF-CARE Additional Instructions: You have been evaluated by both medical and behavioral health teams have been deemed appropriate for discharge. You are highly encouraged to follow-up with your outpatient mental health provider, [facility], for continued outpatient mental services. AT ANY TIME, IF YOUR SYMPTOMS CHANGE SIGNIFICANTLY OR WORSEN OR YOU DEVELOP NEW SYMPTOMS, RETURN TO THE EMERGENCY DEPARTMENT IMMEDIATELY FOR RE-EVALUATION. Referrals: ERIK PUGH MD [Primary Care Provider] - Follow up as needed [facility] [Outside] - Follow up in 3-5 days
[2019-02-01 06:37] VITALS: BP 149/74
[2019-02-01] MEDS ORDERED: RISPERIDONE MICROSPHERES INJ 50 MG/2 ML KIT IM ONE ×2 (10:16→12:00)
--- NOTE | 2019-02-01 10:27 | ER Document Report ---
Doctor's Note Notes: 02/01/19 10:26 Patient seen and examined. He the complains of foot pain which is chronic for him. He states that this point he is not interested in a shot of his Risperdal. He cannot tell me why he is here nor does he answer any questions as to what he hopes to obtain from his ER visit today. Patient is a poor hygiene. Heart is regular rate and rhythm, lungs are clear to oscillation bilaterally. Skin is warm and dry. Examination of the feels no obvious deformities. No significant tenderness. Neurovascular intact. Plan is to hopefully convince patient to medicate with the Risperdal decanoate. Order placed. He denies any suicidal or homicidal thoughts at this time and seems to be psychiatrically at his baseline. We will likely discharge later. 02/01/19 11:53 Patient is still appropriate, baseline. He is refusing Risperdal IM. At this point we will discharge the patient, he is to follow-up as needed.
--- NOTE | 2019-02-02 09:46 | PSYCHOLOGICAL NOTE ---
Psych Note - Psych Note Date seen by psych provider: 02/02/19 Time seen by psych provider: 07:50 Psych Note: Reason for Consult: Patient is a 58-year-old male with schizophrenia presents to the emergency department for "nowhere to go." He originally came last evening complaining of bilateral foot pain and then returned. Originally he showed up while it was snowing outside and his clothes were wet. He walks into the emergency room with no shoes on, with psychiatric scrubs on. [facility] staff was unable to get into contact with family. During today's visit, he is calm and talks with clinician about his feet hurting. He refuses his medications. Patient continues to be appropriate with staff and re-directable in all but taking his medications. Patient does demonstrate times of talking to himself; however, this is baseline for the patient. [facility] health contacted patient's family member, Kathrin, who reports that she will come to the emergency room to apple picking supervisor the patient. She states that she is unsure if he will be willing to get in the car with her however she will attempt. Patient is refusing all medications Schizophrenia per history IDD per history Impression\\plan: Patient is cleared from acute psychiatric services. Patient is refusing his monthly shot and any other medications. He reports his feet hurt and that he does not want to go home. He denies wanting to go to [facility] for his medications. Patient is presenting at his baseline which includes some psychosis. He has been recommended for ACT services in the past. 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 He is still currently his own guardian. APS is currently involved with patient to ensure additional needs are being met. Patient's family member, Kathrin, was contacted by Behavioral health team and reports she will come and apple picking supervisor with patient. Patient is recommended to follow-up with his outpatient mental health provider for continued medication management. Dr. Hines was consulted and the care management this patient; attending physicians in agreement with recommendations and disposition.
== END 2019-02-01 12:31 | disposition home or self-care (01) ==
LOC: ER 21:08
DX: F20.9 Schizophrenia, unspecified (principal); E78.00 Pure hypercholesterolemia, unspecified; I10 Essential (primary) hypertension
CPT/HCPCS: 36415; 80053; 80307; 81001; 85025; 93005; 93010; 99285

== ENCOUNTER 2019-02-03 09:39 | Emergency (ER) | payer MEDICARE, MEDICAID ==
[2019-02-03 09:50] VITALS: BP 115/75
[2019-02-03] MEDS ORDERED: RISPERIDONE MICROSPHERES INJ 50 MG/2 ML KIT IM ONE (10:03)
--- NOTE | 2019-02-03 10:04 | ER Document Report ---
ED Medical Screen (RME) - General Chief Complaint: Psych Problem Stated Complaint: FOOT PAIN Time Seen by Provider: 02/03/19 10:02 Primary Care Provider: ERIK PUGH MD [Primary Care Provider] - Follow up as needed Mode of Arrival: Ambulatory Information source: Patient Notes: This is a 58-year-old man with a history of schizophrenia that is noncompliant with his medicines and he was brought to the ER by EMS. Patient states that it was called at his house and needed want to stay there. He has had multiple visits lately to this ER. He has been noncompliant with his medicines when he is in the ER. His daughter had picked him up from the ER yesterday. Patient denies any fever, chills, nausea vomiting. TRAVEL OUTSIDE OF THE [place] IN LAST 30 DAYS: No - HPI Onset: Last week Onset/Duration: Gradual Quality of pain: No pain Severity: None Pain Level: Denies Associated Symptoms: denies: Chest pain, Shortness of breath Exacerbated by: Denies Relieved by: Denies Similar symptoms previously: Yes Recently seen / treated by doctor: Yes - Related Data Smoking: Non-smoker Frequency of alcohol use: None Drug Abuse: None Allergies/Adverse Reactions: No Known Allergies Allergy (Verified 02/03/19 09:44) Past Medical History - General Information source: Patient - Social History Cigarette use (# per day): No Chew tobacco use (# tins/day): No Frequency of alcohol use: None Drug Abuse: None Lives with: Family Family history: None - Past Medical History Cardiac Medical History: Reports: Hx Hypercholesterolemia, Hx Hypertension Pulmonary Medical History: Reports: Hx Asthma Renal/ Medical History: Denies: Hx Peritoneal Dialysis GI Medical History: Reports: Hx Gastroesophageal Reflux Disease Psychiatric Medical History: Reports: Hx Depression, Hx Schizophrenia - paranoid Surgical Hx: Negative - Immunizations Hx Diphtheria, Pertussis, Tetanus Vaccination: Yes History of Influenza Vaccine for 08/2017 - 01/2018 Season: No Review of Systems - Review of Systems Constitutional: denies: Chills, Fever EENT: No symptoms reported Cardiovascular: No symptoms reported Respiratory: No symptoms reported Gastrointestinal: denies: Abdomen distended, Abdominal pain Genitourinary: No symptoms reported Male Genitourinary: No symptoms reported Musculoskeletal: See HPI Skin: No symptoms reported Hematologic/Lymphatic: No symptoms reported Neurological/Psychological: No symptoms reported Physical Exam - Vital signs Vitals: Temp Pulse Resp BP Pulse Ox 97.6 F 87 20 115/75 97 02/03/19 09:48 02/03/19 09:48 02/03/19 09:48 02/03/19 09:48 02/03/19 09:48 Notes: Physical exam: GENERAL: Patient is alert and oriented x3, no acute distress HEAD: Atraumatic, normocephalic. EYES: Pupils equal round and reactive to light, extraocular movements intact, sclera anicteric, conjunctiva are normal. ENT: TMs normal, nares patent, oropharynx clear without exudates. Moist mucous membranes. NECK: Normal range of motion, supple without obvious mass or JVD. LUNGS: Breath sounds clear to auscultation bilaterally and equal. No wheezes rales or rhonchi. HEART: Regular rate and rhythm without murmurs, rubs or gallops. ABDOMEN: Soft, normoactive bowel sounds. No tenderness to palpation. No guarding, no rebound. No masses appreciated. EXTREMITIES: Normal range of motion, no pitting or edema. No clubbing or cyanosis. Mild edema to the lower extremities appear dependent edema. NEUROLOGICAL: Cranial nerves II through XII grossly intact. Normal speech, movi ng all extremities. PSYCH: Patient is alert, he is directable, he is not agitated. SKIN: Warm, Dry, normal turgor, no rashes or lesions noted. Course - Re-evaluation Re-evalutation: 02/03/19 13:03 Note: Patient has remained cooperative. He is agreeing to take his medicines and he was given risperidone 50 mg decanoate IM. He was seen by the psychology social work assistant. Patient's daughter Kathrin did pick him up. He is stable for outpatient therapy. 02/03/19 13:04 - Vital Signs Vital signs: Temp Pulse Resp BP Pulse Ox 97.6 F 87 20 115/75 97 02/03/19 09:48 02/03/19 09:48 02/03/19 09:48 02/03/19 09:48 02/03/19 09:48 Doctor's Discharge - Discharge Clinical Impression: Schizophrenia Condition: Stable Disposition: HOME, SELF-CARE Additional Instructions: Follow-up with counselor/psychologist. Return to the ER for any problems. You Did receive 50 mg IM risperidone Referrals: ERIK PUGH MD [Primary Care Provider] - Follow up as needed
== END 2019-02-03 11:59 | disposition home or self-care (01) ==
LOC: ER 09:39
DX: F20.9 Schizophrenia, unspecified (principal); E78.00 Pure hypercholesterolemia, unspecified; I10 Essential (primary) hypertension; Z91.14 Patient's other noncompliance with medication regimen
CPT/HCPCS: 99284; 96372; J2794